=== PATIENT | female | born 1935 | race Caucasian/White ===

== ENCOUNTER 2016-02-25 11:56 | Emergency (ER) | payer MEDICARE ==
[~2016-02-25] VITALS: Ht 167.6 cm; Wt 77.0 kg
[~2016-02-25 11:56] MED LIST: ACLI1AER2 IN; ASPI81TA82 PO; ATOR10TA PO; CALC500T19 PO; CARV3.12 PO; CELE40TA PO; CO Q100C9 PO; DIGO0.25 PO; FURO40TA PO; GUAI600; IRON18TA2 PO; LEVA500T PO; LORA1TAB PO; LORTA5 PO; MAXAIR AUTOHALER NASAL; PACE200T4 PO; POTA10IN2 PO; PROT40TA PO; REST30CA PO; SENN8.6T80 PO; TRIA3AER; VITA400D PO; VITRTAB3 PO; [UNRECOGNIZED DRUG - CODE]
[2016-02-25 12:01] VITALS: BP 118/59; PULSE 72; RESP 20; O2SAT 81
[2016-02-25] MEDS ORDERED: ONDANSETRON HCL 4 MG/2 ML VIAL IV PUSH ONE (12:30)
[2016-02-25] MEDS ORDERED: MORPHINE SULFATE 4 MG/ML INJ IV PUSH ONE (12:30)
[2016-02-25] MEDS ORDERED: COQ1200C PO (12:53)
[2016-02-25] MEDS ORDERED: CITA40TA4 PO (12:53)
[2016-02-25] MEDS ORDERED: LORA1TAB12 PO (12:53)
[2016-02-25] MEDS ORDERED: POTA-163 PO (12:53)
[2016-02-25] MEDS ORDERED: COQ-100C2 (12:53)
[2016-02-25] MEDS ORDERED: DIGO0.12 PO (12:53)
[2016-02-25] MEDS ORDERED: FURO40TA PO (12:53)
[2016-02-25] MEDS ORDERED: ADVA250A INH (12:53)
[2016-02-25] MEDS ORDERED: TEMA30CA PO (12:53)
[2016-02-25] MEDS ORDERED: FERR325T PO (12:53)
[2016-02-25] MEDS ORDERED: CALC0.25 PO (12:53)
[2016-02-25] MEDS ORDERED: OMEP20TA PO (12:53)
[2016-02-25] MEDS ORDERED: AMIO200T PO (12:53)
[2016-02-25] MEDS ORDERED: ASPI1TAB69 PO (12:53)
[2016-02-25] MEDS ORDERED: ATOR10TA15 PO (12:53)
[2016-02-25] MEDS ORDERED: TRIA1SPR6 EACH NARE (12:53)
[2016-02-25] MEDS ORDERED: OXYGEN 2L (12:53)
[2016-02-25] MEDS ORDERED: CARV3.12 PO (12:53)
[2016-02-25 12:56] LABS: AUTOMATED NEUTROPHIL # 12.9 TH/MM3 (1.8-7.7); BASOPHIL % 0.3 % (0.0-2.0); EOSINOPHIL # 0.1 TH/MM3 (0-0.4); EOSINOPHIL % 0.9 % (0.0-4.0); HEMATOCRIT 38.9 % (35.0-46.0); HEMO FLAGS DIFF FINAL; LYMPH % 5.6 % (9.0-44.0); LYMPHOCYTE # 0.8 TH/MM3 (1.0-4.8); MEAN CELL VOLUME 86.4 FL (80.0-100.0); MEAN CORPUSCULAR HEMOGLOBIN 28.2 PG (27.0-34.0); MEAN CORPUSCULAR HGB CONC 32.6 % (32.0-36.0); MONO % 6.3 % (0.0-8.0); NEUT % 86.9 % (16.0-70.0); PLATELET COUNT 256 TH/MM3 (150-450); RED CELL DISTRIBUTION WIDTH 14.4 % (11.6-17.2); WHITE BLOOD COUNT 14.8 TH/MM3 (4.0-11.0)
--- NOTE | 2016-02-25 13:01 | RADRPT ---
EXAM DATE/TIME: 02/25/2016 12:38 [facility] COMPARISON: No previous studies available for comparison. INDICATIONS : Trauma; fall, facial laceration. RADIATION DOSE: 56.35 CTDIvol (mGy) MEDICAL HISTORY : Cardiovascular disease. Carcinoma, lung. SURGICAL HISTORY : None. ENCOUNTER: Initial ACUITY: 1 day PAIN SCALE: 5/10 LOCATION: cranial TECHNIQUE: Multiple contiguous axial images were obtained of the head. Using automated exposure control and adj ustment of the mA and/or kV according to patient size, radiation dose was kept as low as reasonably a chievable to obtain optimal diagnostic quality images. FINDINGS: CEREBRUM: The ventricles are normal for age. No evidence of midline shift, mass lesion, hemorrhage or acute in farction. No extra-axial fluid collections are seen. POSTERIOR FOSSA: The cerebellum and brainstem are intact. The 4th ventricle is midline. The cerebellopontine angle i s unremarkable. EXTRACRANIAL: The visualized portion of the orbits is intact. SKULL: The calvaria is intact. No evidence of skull fracture. Fluid is present in the left maxillary sinus . Facial bones are pending. CONCLUSION: Intracranial contents are unremarkable. Anuel Sanford MD FACR on February 25, 2016 at 12:59 Board Certified Radiologist. This report was verified electronically.
--- NOTE | 2016-02-25 13:05 | RADRPT ---
EXAM DATE/TIME: 02/25/2016 12:29 [facility] COMPARISON: CHEST SINGLE AP, March 22, 2014, 9:34. INDICATIONS : Left-sided chest pain post fall today. MEDICAL HISTORY : None. SURGICAL HISTORY : CABG. Pacemaker. Port placement. ENCOUNTER: Initial ACUITY: 1 day PAIN SCORE: 10/10 LOCATION: Left chest FINDINGS: Pacemaker is implanted on the right. Central venous catheter is entering from the left. Heart is en larged. Pulmonary vascularity is normal. There is no alveolar consolidation, pleural effusion or pn eumothorax. CONCLUSION: Negative for pneumothorax or displaced rib fracture. Anuel Sanford MD FACR on February 25, 2016 at 12:58 Board Certified Radiologist. This report was verified electronically.
--- NOTE | 2016-02-25 13:09 | RADRPT ---
EXAM DATE/TIME: 02/25/2016 12:39 [facility] COMPARISON: No previous studies available for comparison. INDICATIONS : Trauma; fall; laceration to orbit. RADIATION DOSE: 20.08 CTDIvol (mGy) MEDICAL HISTORY : Carcinoma, lung. SURGICAL HISTORY : None. ENCOUNTER: Initial ACUITY: 1 day PAIN SCALE: 5/10 LOCATION: Bilateral neck TECHNIQUE: Volumetric scanning of the cervical spine was performed. Multiplanar reconstructions i n the sagittal, coronal and oblique axial planes were performed. Using automated exposure control a nd adjustment of the mA and/or kV according to patient size, radiation dose was kept as low as reason ably achievable to obtain optimal diagnostic quality images. FINDINGS: C1 and C2 are intact. C2-C3: Mild uncinate ridging is present without significant spinal stenosis. Neural foramina are ad equate. C3-C4: Moderate uncinate ridging is present with bilateral neural foraminal encroachment. C4-C5: Moderate bilateral neural foraminal encroachment and uncinate ridging is present. C5-C6: Moderate right-sided spinal stenosis is evident with minimal bilateral neural foraminal encro achment. C6-C7: The bony spinal canal is normal in size. No evidence of disc bulge or herniation. The neura l foramina are bilaterally patent. C7-T1: The bony spinal canal is normal in size. No evidence of disc bulge or herniation. The neura l foramina are bilaterally patent. CONCLUSION: Degenerative changes as described above without fracture. Anuel Sanford MD FACR on February 25, 2016 at 13:00 Board Certified Radiologist. This report was verified electronically.
--- NOTE | 2016-02-25 13:10 | RADRPT ---
EXAM DATE/TIME: 02/25/2016 12:40 [facility] COMPARISON: No previous studies available for comparison. INDICATIONS : Trauma; fall, laceration to left orbit. RADIATION DOSE: 21.96 CTDIvol (mGy) MEDICAL HISTORY : Carcinoma, lung. SURGICAL HISTORY : None. ENCOUNTER: Initial ACUITY: 1 day PAIN SCORE: 5/10 LOCATION: Bilateral facial TECHNIQUE: Volumetric scanning of the facial bones was performed. Using automated exposure control and adjustme nt of the mA and/or kV according to patient size, radiation dose was kept as low as reasonably achiev able to obtain optimal diagnostic quality images. FINDINGS: There is a fracture of the left infraorbital rim with minimal entrapment. There is minimal nasal sep kwasi deviation, convex to the left. The left zygoma is intact. Mandible and maxilla are intact. CONCLUSION: Fracture of the infraorbital rim on the left with minimal entrapment. Anuel Sanford MD FACR on February 25, 2016 at 13:01 Board Certified Radiologist. This report was verified electronically.
[2016-02-25 13:20] LABS: BICARBONATE 31.5 MEQ/L (21.0-32.0); POTASSIUM 3.9 MEQ/L (3.5-5.1)
[2016-02-25] MEDS ORDERED: HYDR-3533 PO (14:03)
[2016-02-25] MEDS ORDERED: ZOFR4TAB3 SL (14:03)
--- NOTE | 2016-02-25 14:03 | PD ---
HPI Chief Complaint: Fall Time Seen by Provider: 12:12 Travel History International Travel<30 days: No Contact w/Intl Traveler<30days: No Traveled to known affect area: No History of Present Illness HPI This is a 81-year-old female who was climbing on a two-step ladder to try to fix her heater and changed the batteries in her thermostat when she fell and hit her face and her left side. She did not lose consciousness. She reports moderate severity rib pain on the left side, worse with deep breaths, improved with rest. She denies any other injuries. Her last tetanus shot was within 5 years. PFSH Past Medical History Cancer: Yes (LOWER LEFT LOBE) Cardiovascular Problems: Yes (CHF) Diabetes: No Endocrine: No Gastrointestinal Disorders: Yes Genitourinary: No Hepatitis: No Hiatal Hernia: No Immune Disorder: No Medical other: No Musculoskeletal: Yes (ARTHRITIS) Neurologic: No Psychiatric: Yes (DEPRESSION/ANXIETY) Reproductive: No Respiratory: Yes (COPD) Thyroid Disease: No Tetanus Vaccination: < 5 Years Past Surgical History Abdominal Surgery: Yes (HYSTERECTOMY, APPENDECTOMY,BLADDER REPAIR) AICD: No Cardiac Surgery: Yes (OPEN HEART) Ear Surgery: No Endocrine Surgery: No Eye Surgery: No Genitourinary Surgery: No Gynecologic Surgery: No Joint Replacement: Yes (BOTH KNEES) Neurologic Surgery: No Oral Surgery: Yes (TONSILECTOMY) Pacemaker: Yes Thoracic Surgery: No Other Surgery: Yes Social History Alcohol Use: No Tobacco Use: No Substance Use: No Allergies-Medications (Allergen,Severity, Reaction): Coded Allergies: Trazodone (Verified Allergy, Severe, Nausea/Vomiting, 02/25/16) Percocet (Unverified Allergy, Intermediate, VOMITING, 02/25/16) Uncoded Allergies: TRAZ (Allergy, Intermediate, VOMITING, 03/22/14) Reported Meds & Prescriptions Reported Meds & Active Scripts Active Reported [Oxygen 2L] Aspirin 81 Mg Tabdr 81 Mg PO DAILY Coq10 (Coenzyme Q10 (Ubidecarenone)) 200 Mg Cap 1 Cap PO DAILY Coq-10 (Coenzyme Q10 (Ubidecarenone)) 100 Mg Cap 200 Ferrous Sulfate 325 Mg Tab 325 Mg PO DAILY Nasacort Allergy 24Hr Nasal (Triamcinolone Nasal) 55 Mcg/Act Spr 2 [place] EACH NARE DAILY Potassium Chloride ER (Potassium Chloride) 20 Meq Tab 20 Meq PO TID Omeprazole 20 Mg Tab 20 Mg PO BID Digoxin 0.125 Mg Tab 0.125 Mg PO DAILY Carvedilol 3.125 Mg Tab 3.125 Mg PO BID Amiodarone (Amiodarone HCl) 200 Mg Tab 200 Mg PO DAILY Furosemide 40 Mg Tab 40 Mg PO DAILY Calcitriol 0.25 Mcg Cap 0.25 Mcg PO EVERY OTHER DAY Citalopram (Citalopram Hydrobromide) 40 Mg Tab 40 Mg PO DAILY Advair Diskus Inh (Fluticasone-Salmeterol Inh) 250-50 Mcg/Blist Aer 1 Puff INH BID Rinse mouth after use. Lorazepam 1 Mg Tab 1 Mg PO BID PRN Atorvastatin (Atorvastatin Calcium) 10 Mg Tab 10 Mg PO HS Temazepam 30 Mg Cap 30 Mg PO HS PRN Review of Systems Except as stated in HPI: all other systems reviewed are Neg Physical Exam Narrative GENERAL:Well appearing, no acute distress SKIN: 2 cm laceration immediately below the left eyebrow. HEAD: Atraumatic. Normocephalic. EYES: Pupils equal and round. No injection or drainage. Full extraocular movements, some pain with upward gaze on both eyes with some periorbital ecchymosis of the left eye ENT: Moist mucous membranes NECK: Trachea midline. CARDIOVASCULAR: Regular rate and rhythm. No murmur appreciated. RESPIRATORY: Clear to auscultation. Breath sounds equal bilaterally. Tender to palpation along the left rib cage GASTROINTESTINAL: Abdomen soft, non-tender, nondistended. MUSCULOSKELETAL: No obvious deformities. NEUROLOGICAL: Awake and alert. No obvious cranial nerve deficits. Moving all extremities. PSYCHIATRIC: Appropriate mood and affect; insight and judgment normal. Data Data Last Documented VS Vital Signs Date Time Temp Pulse Resp B/P Pulse Ox O2 Delivery O2 Flow Rate FiO2 02/25/16 12:01 72 20 118/[address] Brain W/O Iv Contrast(Rout) (02/25/16 ) Ct Cerv Spine W/O Contrast (02/25/16 ) Ct Facial Bones W/O Iv Cont (02/25/16 ) Complete Blood Count With Diff (02/25/16 12:17) Basic Metabolic Panel (Bmp) (02/25/16 12:17) ^ Insert Iv (02/25/16 12:17) Chest, Single Ap (02/25/16 ) Morphine Inj (Morphine Inj) (02/25/16 12:30) Ondansetron Inj (Zofran Inj) (02/25/16 12:30) Labs Laboratory Tests Test 02/25/16 12:20 White Blood Count 14.8 TH/MM3 Red Blood Count 4.50 MIL/MM3 Hemoglobin 12.7 GM/DL Hematocrit 38.9 % Mean Corpuscular Volume 86.4 FL Mean Corpuscular Hemoglobin 28.2 PG Mean Corpuscular Hemoglobin 32.6 % Concent Red Cell Distribution Width 14.4 % Platelet Count 256 TH/MM3 Mean Platelet Volume 8.6 FL Neutrophils (%) (Auto) 86.9 % Lymphocytes (%) (Auto) 5.6 % Monocytes (%) (Auto) 6.3 % Eosinophils (%) (Auto) 0.9 % Basophils (%) (Auto) 0.3 % Neutrophils # (Auto) 12.9 TH/MM3 Lymphocytes # (Auto) 0.8 TH/MM3 Monocytes # (Auto) 0.9 TH/MM3 Eosinophils # (Auto) 0.1 TH/MM3 Basophils # (Auto) 0.0 TH/MM3 CBC Comment DIFF FINAL Differential Comment Sodium Level 139 MEQ/L Potassium Level 3.9 MEQ/L Chloride Level 103 MEQ/L Carbon Dioxide Level 31.5 MEQ/L Anion Gap 5 MEQ/L Blood Urea Nitrogen 12 MG/DL Creatinine 1.14 MG/DL Estimat Glomerular Filtration 46 ML/MIN Rate Random Glucose 90 MG/DL Calcium Level 9.1 MG/DL [facility] Medical Decision Making Medical Screen Exam Complete: Yes Emergency Medical Condition: Yes Interpretation(s) Leukocytosis with left shift Creatinine is 1.14 Last [address] 02/25/16 0000 Signed Impressions: Service Date/Time: Thursday, February 25, 2016 12:38 - CONCLUSION: Intracranial contents are unremarkable. Anuel Sanford MD FACR CT: fracture of the infraorbital rim with minimal entrapment Differential Diagnosis Intracranial hemorrhage, cervical spine fracture, orbital floor fracture, extraocular muscle entrapment Narrative Course This is a 81-year-old female who presents to the emergency department with closed head injury following trying to battery in her. Patient sustained a laceration over the left eye. She is placed on a monitor and an IV was established. CT of the head is negative for intracranial hemorrhage but the face demonstrates an infraorbital fracture with some minimal entrapment. She has full extraocular movements with some pain with upward gaze. There is no facial surgeon on-call today. I discussed with the patient the possibilities of being transferred to [place] for urgent surgery versus following up in outpatient clinic. Given that she has full extraocular movement I suspect that she mainly has some entrapped fat and I think she is safe for local follow-up. She would much prefer to follow up with an outpatient facial surgeon. Her laceration was repaired with glue. I do suspect the patient has a rib fracture. She'll be discharged on pain medicine and if her pain worsens or she becomes short of breath I urged her to return to the emergency department. She does have someone who lives with her who will check on her and help care for her. Procedures Procedure Narrative laceration repair: 2 cm laceration of the left face below the eyebrow was cleansed with normal saline and repaired with dermabond and steristrips. Diagnosis Primary Impression: Orbital floor fracture Qualified Code: S02.32XA - Closed fracture of left orbital floor, initial encounter Additional Impression: Laceration of face Qualified Code: S01.81XA - Laceration of face, initial encounter Referrals: Randall Graves DDS Patient Instructions: General Instructions Additional Instructions: You have a wound that was repaired with glue The glue film will fall off in 5- 10 days. Exposure to water might make the glue fall off too soon. Call your doctor if the edges of the wound open or pull apart. Change the bandage daily until the glue film falls off. Keepo the wound dry. Do not apply any ointments or creams over the film. You do not need to clean the wound. If it gets wet gently blot it dry with a soft towel. Do not soak or scrub the wound. If the wound develops increasing redness, pain, green or yellow discharge, swelling, foul odor, red streaks, or if you develop a fever return to the emergency department. History develop severe shortness of breath, chest pain or difficulty breathing return to the emergency room. Med/Other Pt SpecificInfo: Prescription(s) given Scripts Ondansetron Odt (Zofran Odt)4 Mg Tab4 Mg SL Q6HR PRN (Nausea/Vomiting) #14 TAB Ref 0 Prov:Emeli Kim MD 02/25/16 Hydrocodone-Acetaminophen (Lortab)5-325 Mg Tab1-2 Tab PO Q6H PRN (PAIN) #14 TAB Ref 0 Prov:Emeli Kim MD 02/25/16 Disposition: 01 DISCHARGE HOME Condition: Stable Emeli Kim MD Feb 25, 2016 14:03
[2016-02-25] MEDS ORDERED: HYDROmorphone HCL PF 1 MG/ML VIAL IM ONE (14:15)
[2016-02-25 15:11] VITALS: BP 142/87
[2016-04-02] MEDS ORDERED: TRAM50TA PO (13:50)
== END 2016-02-25 15:23 | disposition home or self-care (01) ==
LOC: NEPE 11:56
DX: S01.112A Laceration without foreign body of left eyelid and periocular area, initial encounter (principal); S02.32XA Fracture of orbital floor, left side, initial encounter for closed fracture; R07.9 Chest pain, unspecified; I50.9 Heart failure, unspecified; W11.XXXA Fall on and from ladder, initial encounter; Y93.89 Activity, other specified; Y92.009 Unspecified place in unspecified non-institutional (private) residence as the place of occurrence of the external cause; Z95.0 Presence of cardiac pacemaker
CPT/HCPCS: 12011; 70450; 70486; 71010; 72125; 80048; 85025; 96372; 96374; 96375; 99284; J1170; J2270; J2405

== ENCOUNTER 2016-03-14 17:25 | Inpatient (IN) | payer MEDICARE ==
[~2016-03-14] VITALS: Ht 167.6 cm; Wt 85.3 kg
[~2016-03-14 17:25] MED LIST changes: -ACLI1AER2 IN; +ADVA250A INH; +AMIO200T PO; +ASPI1TAB69 PO; -ASPI81TA82 PO; -ATOR10TA PO; +ATOR10TA15 PO; +CALC0.25 PO; -CALC500T19 PO; -CELE40TA PO; +CITA40TA4 PO; -CO Q100C9 PO; +COQ-100C2; +COQ1200C PO; +DIGO0.12 PO; -DIGO0.25 PO; +FERR325T PO; -GUAI600; +HYDR-3533 PO; -IRON18TA2 PO; -LEVA500T PO; -LORA1TAB PO; +LORA1TAB12 PO; -LORTA5 PO; -MAXAIR AUTOHALER NASAL; +OMEP20TA PO; +OXYGEN 2L; -PACE200T4 PO; +POTA-163 PO; -POTA10IN2 PO; -PROT40TA PO; -REST30CA PO; -SENN8.6T80 PO; +TEMA30CA PO; +TRIA1SPR6 EACH NARE; -TRIA3AER; -VITA400D PO; -VITRTAB3 PO; +ZOFR4TAB3 SL; -[UNRECOGNIZED DRUG - CODE]
[2016-03-14 17:27] VITALS: BP 122/75; PULSE 60; RESP 14; TEMP 98.2; O2SAT 83
[2016-03-14] MEDS ORDERED: SODIUM CHLORIDE 0.9% FLUSH 5 ML FLUSH IVF PRN (18:15)
[2016-03-14 18:34] VITALS: O2SAT 98
[2016-03-14 18:39] LABS: BASOPHIL % 0.1 % (0.0-2.0); EOSINOPHIL # 0.1 TH/MM3 (0-0.4); EOSINOPHIL % 0.9 % (0.0-4.0); HEMATOCRIT 35.5 % (35.0-46.0); HEMO FLAGS DIFF FINAL; LYMPH % 6.8 % (9.0-44.0); LYMPHOCYTE # 0.9 TH/MM3 (1.0-4.8); MEAN CELL VOLUME 86.1 FL (80.0-100.0); MEAN CORPUSCULAR HEMOGLOBIN 27.4 PG (27.0-34.0); MEAN CORPUSCULAR HGB CONC 31.8 % (32.0-36.0); MONO % 7.2 % (0.0-8.0); PLATELET COUNT 304 TH/MM3 (150-450); RED BLOOD COUNT 4.12 MIL/MM3 (4.00-5.30); RED CELL DISTRIBUTION WIDTH 14.7 % (11.6-17.2); WHITE BLOOD COUNT 12.9 TH/MM3 (4.0-11.0)
--- NOTE | 2016-03-14 18:56 | RADRPT ---
EXAM DATE/TIME: 03/14/2016 18:16 [facility] COMPARISON: CHEST SINGLE AP, February 25, 2016, 12:29. INDICATIONS : Palpitations, Syncope. MEDICAL HISTORY : Hypertension. SURGICAL HISTORY : Pacemaker. CABG. ENCOUNTER: Initial ACUITY: 1 day PAIN SCORE: 0/10 LOCATION: chest FINDINGS: Pacemaker device is noted with control pack over the right chest. A left chest port is present. Linea r scarring or atelectasis is again noted in the mid lung zones bilaterally. There is no significant e ffusion. Heart size and mediastinal contours are grossly stable. CONCLUSION: Stable bilateral parenchymal lung scarring or atelectasis Win Chery MD on March 14, 2016 at 18:53 Board Certified Radiologist. This report was verified electronically.
[2016-03-14 19:00] LABS: ANION GAP 6 MEQ/L (5-15); BICARBONATE 30.7 MEQ/L (21.0-32.0); BLOOD UREA NITROGEN 18 MG/DL (7-18); CHLORIDE 101 MEQ/L (98-107); GLOMERULAR FILTRATION RATE 38 ML/MIN (>89); POTASSIUM 4.3 MEQ/L (3.5-5.1); SODIUM (NA) 138 MEQ/L (136-145)
--- NOTE | 2016-03-14 19:05 | PD ---
HPI . Syncope Chief Complaint: Fall Time Seen by Provider: 17:59 Travel History International Travel<30 days: No Contact w/Intl Traveler<30days: No Traveled to known affect area: No History of Present Illness HPI Patient presents complaining with several episodes of syncope since February 24. She states that she suffered a fall on February 24. Since then, she gets dizzy when she stands up. She reportedly had a syncopal episode today. She denies any injury today associated with her syncope. When she was here on the , she had suffered a mechanical fall with no associated loss of consciousness. She had an orbital floor fracture and some probable rib fractures. She reports no problems today with these injuries. She does admit to some chest pain and shortness of breath. She also has had some nausea and vomiting. PFSH Past Medical History Cancer: Yes (LOWER LEFT LOBE) Cardiovascular Problems: Yes Diabetes: Yes Endocrine: No Gastrointestinal Disorders: Yes Genitourinary: No Hepatitis: No Hiatal Hernia: No Immune Disorder: No Musculoskeletal: Yes (ARTHRITIS) Neurologic: No Psychiatric: Yes (DEPRESSION/ANXIETY) Reproductive: No Respiratory: Yes Thyroid Disease: No Tetanus Vaccination: < 5 Years Past Surgical History Abdominal Surgery: Yes (HYSTERECTOMY, APPENDECTOMY,BLADDER REPAIR) AICD: No Cardiac Surgery: Yes (OPEN HEART) Ear Surgery: No Endocrine Surgery: No Eye Surgery: No Genitourinary Surgery: No Gynecologic Surgery: No Joint Replacement: Yes (BOTH KNEES) Neurologic Surgery: No Oral Surgery: Yes (TONSILECTOMY) Pacemaker: Yes Thoracic Surgery: No Other Surgery: Yes Social History Alcohol Use: No Tobacco Use: No Substance Use: No Allergies-Medications (Allergen,Severity, Reaction): Coded Allergies: Trazodone (Verified Allergy, Severe, Nausea/Vomiting, 03/14/16) Percocet (Unverified Allergy, Intermediate, VOMITING, 03/14/16) Uncoded Allergies: TRAZ (Allergy, Intermediate, VOMITING, 03/22/14) Reported Meds & Prescriptions Reported Meds & Active Scripts Active Zofran Odt (Ondansetron Odt) 4 Mg Tab 4 Mg SL Q6HR PRN Lortab (Hydrocodone-Acetaminophen) 5-325 Mg Tab 1-2 Tab PO Q6H PRN Reported [Oxygen 2L] Aspirin 81 Mg Tabdr 81 Mg PO DAILY Coq10 (Coenzyme Q10 (Ubidecarenone)) 200 Mg Cap 1 Cap PO DAILY Coq-10 (Coenzyme Q10 (Ubidecarenone)) 100 Mg Cap 200 Ferrous Sulfate 325 Mg Tab 325 Mg PO DAILY Nasacort Allergy 24Hr Nasal (Triamcinolone Nasal) 55 Mcg/Act Spr 2 [place] EACH NARE DAILY Potassium Chloride ER (Potassium Chloride) 20 Meq Tab 20 Meq PO TID Omeprazole 20 Mg Tab 20 Mg PO BID Digoxin 0.125 Mg Tab 0.125 Mg PO DAILY Carvedilol 3.125 Mg Tab 3.125 Mg PO BID Amiodarone (Amiodarone HCl) 200 Mg Tab 200 Mg PO DAILY Furosemide 40 Mg Tab 40 Mg PO DAILY Calcitriol 0.25 Mcg Cap 0.25 Mcg PO EVERY OTHER DAY Citalopram (Citalopram Hydrobromide) 40 Mg Tab 40 Mg PO DAILY Advair Diskus Inh (Fluticasone-Salmeterol Inh) 250-50 Mcg/Blist Aer 1 Puff INH BID Rinse mouth after use. Lorazepam 1 Mg Tab 1 Mg PO BID PRN Atorvastatin (Atorvastatin Calcium) 10 Mg Tab 10 Mg PO HS Temazepam 30 Mg Cap 30 Mg PO HS PRN Review of Systems Except as stated in HPI: all other systems reviewed are Neg General / Constitutional: No: Fever, Chills Eyes: No: Diploplia, Blurred Vision HENT: Positive: Lightheadedness, No: Headaches Cardiovascular: Positive: Chest Pain or Discomfort Respiratory: Positive: Shortness of Breath Neurologic: Positive: Weakness, Dizziness Physical Exam Narrative GENERAL: This is a healthy-appearing elderly woman who does have some bruising her left cheek and her left shoulder. SKIN: Warm and dry. Bruising as noted above. HEAD: Atraumatic. Normocephalic. EYES: Pupils equal and round. Extraocular movements are intact. ENT: No nasal bleeding or discharge. Mucous membranes pink and moist. NECK: Trachea midline. Neck is supple. CARDIOVASCULAR: Regular rate and rhythm. Heart sounds were normal. RESPIRATORY: No accessory muscle use. Lungs are clear with full air movement throughout. GASTROINTESTINAL: Abdomen soft, non-tender, nondistended. MUSCULOSKELETAL: No obvious deformities. No edema. NEUROLOGICAL: Awake and alert. No obvious cranial nerve deficits. Motor grossly within normal limits. Normal speech. PSYCHIATRIC: Appropriate mood and affect; insight and judgment normal. Data Data Last Documented VS Vital Signs Date Time Temp Pulse Resp B/P Pulse Ox O2 Delivery O2 Flow Rate FiO2 03/14/16 19:35 61 18 135/64 92 Nasal Cannula 3 03/14/16 17:27 98.2 Orders Electrocardiogram (03/14/16 18:01) Basic Metabolic Panel (Bmp) (03/14/16 18:01) Complete Blood Count With Diff (03/14/16 18:01) Ckmb (Isoenzyme) Profile (03/14/16 18:01) Troponin I (03/14/16 18:01) Chest, Single Ap (03/14/16 18:01) Ecg Monitoring (03/14/16 18:01) Iv Access Insert/Monitor (03/14/16 18:01) Oximetry (03/14/16 18:01) Sodium Chloride 0.9% Flush (Ns Flush) (03/14/16 18:15) D-Dimer (03/14/16 19:06) Ct Brain W/O Iv Contrast(Rout) (03/14/16 19:06) Ct Pulmonary Angiogram (03/14/16 19:55) Labs Laboratory Tests Test 03/14/16 03/14/16 18:30 19:07 White Blood Count 12.9 TH/MM3 Red Blood Count 4.12 MIL/MM3 Hemoglobin 11.3 GM/DL Hematocrit 35.5 % Mean Corpuscular Volume 86.1 FL Mean Corpuscular Hemoglobin 27.4 PG Mean Corpuscular Hemoglobin 31.8 % Concent Red Cell Distribution Width 14.7 % Platelet Count 304 TH/MM3 Mean Platelet Volume 7.8 FL Neutrophils (%) (Auto) 85.0 % Lymphocytes (%) (Auto) 6.8 % Monocytes (%) (Auto) 7.2 % Eosinophils (%) (Auto) 0.9 % Basophils (%) (Auto) 0.1 % Neutrophils # (Auto) 11.0 TH/MM3 Lymphocytes # (Auto) 0.9 TH/MM3 Monocytes # (Auto) 0.9 TH/MM3 Eosinophils # (Auto) 0.1 TH/MM3 Basophils # (Auto) 0.0 TH/MM3 CBC Comment DIFF FINAL Differential Comment Sodium Level 138 MEQ/L Potassium Level 4.3 MEQ/L Chloride Level 101 MEQ/L Carbon Dioxide Level 30.7 MEQ/L Anion Gap 6 MEQ/L Blood Urea Nitrogen 18 MG/DL Creatinine 1.34 MG/DL Estimat Glomerular Filtration 38 ML/MIN Rate Random Glucose 105 MG/DL Calcium Level 8.0 MG/DL Total Creatine Kinase 53 U/L Troponin I LESS THAN 0.02 NG/ML D-Dimer Quantitative (PE/DVT) 3.76 MG/L FEU [facility] Medical Decision Making Medical Screen Exam Complete: Yes Emergency Medical Condition: Yes Interpretation(s) Paced rhythm. No old EKGs here for comparison. Differential Diagnosis My differential diagnosis of syncope includes but is not limited to cardiac arrhythmia, hypovolemia, anemia, neurological catastrophe, vasovagal response Narrative Course Patient presents for evaluation of syncope. CBC has a white count of 12.9. H&H is 11.3 and 35.5. D-dimer is elevated at 3.76. A CT for PE has subsequently been ordered. Electrolytes are normal. GFR is 38. Cardiac enzymes are negative. Head CT is negative for acute change. Her CT for PE has not been done yet. I have checked her out to Dr. Moe pending the CT for PE. Critical Care Narrative Aggregate critical care time was [-] minutes. Time to perform other separately billable procedures was not included in the critical care time. My time did not include minutes spent treating any other patients simultaneously or on activities that did not directly contribute to the patient's treatment. The services I provided to this patient were to treat and/or prevent clinically significant deterioration that could result in: Cardiac dysrhythmia, cardiovascular collapse, PE with respiratory arrest I provided critical care services requiring my management, as noted below: Chart data review, documentation time, medication orders and management, vital sign assessments/reviewing monitor data, ordering and reviewing lab tests, ordering and interpreting/reviewing x-rays and diagnostic studies, care of the patient and discussion of the patient with the admitting physicians. Diagnosis Primary Impression: Syncope Qualified Code: R55 - Syncope, unspecified syncope type Additional Impression: Elevated d-dimer Condition: Stable Manju Huitron MD Mar 14, 2016 19:05
[2016-03-14 19:18] LABS: CREATINE KINASE 53 U/L (26-192)
[2016-03-14 19:35] VITALS: BP 135/64; PULSE 61; RESP 18; O2SAT 92
--- NOTE | 2016-03-14 20:44 | RADRPT ---
EXAM DATE/TIME: 03/14/2016 19:24 [facility] COMPARISON: CT BRAIN W/O CONTRAST, February 25, 2016, 12:38. INDICATIONS : Dizziness and syncope. RADIATION DOSE: 41.33 CTDIvol (mGy) MEDICAL HISTORY : Cardiovascular disease. Diabetes mellitus type 2. Carcinoma, lung. SURGICAL HISTORY : Pacemaker. Tonsillectomy. ENCOUNTER: Initial ACUITY: 1 day PAIN SCALE: 3/10 LOCATION: cranial TECHNIQUE: Multiple contiguous axial images were obtained of the head. Using automated exposure control and adj ustment of the mA and/or kV according to patient size, radiation dose was kept as low as reasonably a chievable to obtain optimal diagnostic quality images. FINDINGS: The ventricles are symmetric and normal. No abnormal extra axial fluid collections are identified. Th ere is no evidence of intracranial hemorrhage or mass. Nothing to suggest acute infarction. There is minimal sinus disease present in left posterior ethmoids. Extracranial structures are otherwise intac t and unremarkable. CONCLUSION: No acute findings Win Chery MD on March 14, 2016 at 20:40 Board Certified Radiologist. This report was verified electronically.
[2016-03-14] MEDS ORDERED: IODIXANOL 320 MG/ML 10 ML VIAL (for Rad CT) IV ONE (21:58)
--- NOTE | 2016-03-14 22:09 | RADRPT ---
EXAM DATE/TIME: 03/14/2016 21:34 [facility] COMPARISON: CHEST SINGLE AP, March 14, 2016, 18:16. INDICATIONS : Short of breath. IV CONTRAST: 49 cc Visipaque (iodixanol) IV RADIATION DOSE: 23.15 CTDIvol (mGy) MEDICAL HISTORY : Carcinoma, lung. diabetes, arthritis SURGICAL HISTORY : Hysterectomy. Appendectomy.CABGbladder repair. ENCOUNTER: Initial ACUITY: 1 day PAIN SCALE: 0/10 LOCATION: chest TECHNIQUE: Volumetric scanning of the chest was performed using a pulmonary embolism protocol MIP images were re constructed. Using automated exposure control and adjustment of the mA and/or kV according to patien t size, radiation dose was kept as low as reasonably achievable to obtain optimal diagnostic quality images. FINDINGS: PULMONARY ARTERIES: No filling defects are seen in the pulmonary arteries through the segmental level. LUNGS: There are areas of atelectasis or infiltrate in the right midlung and in the left perihilar region an d posteromedial left base as well as the lateral left midlung. PLEURAE: There is no pleural thickening or pleural effusion. MEDIASTINUM: There is good visualization of the great vessels of the middle mediastinum. No evidence of mediastin al or hilar adenopathy/mass. MUSCULOSKELETAL: Within normal limits for patient age. MISCELLANEOUS: The visualized upper abdominal organs demonstrate no acute abnormality. CONCLUSION: No evidence of pulmonary embolism Win Chery MD on March 14, 2016 at 22:02 Board Certified Radiologist. This report was verified electronically.
--- NOTE | 2016-03-14 23:29 | PD ---
Data Data Last Documented VS Vital Signs Date Time Temp Pulse Resp B/P Pulse Ox O2 Delivery O2 Flow Rate FiO2 03/14/16 19:35 61 18 135/64 92 Nasal Cannula 3 03/14/16 17:27 98.2 Orders Electrocardiogram (03/14/16 18:01) Basic Metabolic Panel (Bmp) (03/14/16 18:01) Complete Blood Count With Diff (03/14/16 18:01) Ckmb (Isoenzyme) Profile (03/14/16 18:01) Troponin I (03/14/16 18:01) Chest, Single Ap (03/14/16 18:01) Ecg Monitoring (03/14/16 18:01) Iv Access Insert/Monitor (03/14/16 18:01) Oximetry (03/14/16 18:01) Sodium Chloride 0.9% Flush (Ns Flush) (03/14/16 18:15) D-Dimer (03/14/16 19:06) Ct Brain W/O Iv Contrast(Rout) (03/14/16 19:06) Ct Pulmonary Angiogram (03/14/16 19:55) Iodixanol 320 Inj (Rad Ct) (Visipaque 32 (03/14/16 21:58) Vital Signs (Adult) Q4H (03/14/16 23:25) Neuro Checks Q4H (03/14/16 23:25) Activity Bed Rest With Brp (03/14/16 23:25) Diet Heart Healthy (03/15/16 Breakfast) Sodium Chlor 0.9% 1000 Ml Inj (Ns 1000 M (03/14/16 23:25) Sodium Chloride 0.9% Flush (Ns Flush) (03/14/16 23:30) Sodium Chloride 0.9% Flush (Ns Flush) (03/15/16 09:00) Acetaminophen (Tylenol) (03/14/16 23:30) Ondansetron Inj (Zofran Inj) (03/14/16 23:30) Basic Metabolic Panel (Bmp) (03/15/16 06:00) Complete Blood Count With Diff (03/15/16 06:00) Creatine Kinase (Cpk) (03/15/16 00:00) Creatine Kinase (Cpk) (03/15/16 06:00) Troponin I (03/15/16 00:00) Troponin I (03/15/16 06:00) Electrocardiogram (03/15/16 00:00) Electrocardiogram (03/15/16 06:00) Scd Bilateral/Knee High TRACI.BID (03/14/16 23:25) Naloxone Inj (Narcan Inj) (03/14/16 23:30) Echo 2d Comp W/Dopp(Routine) (03/14/16 ) Us Carotid Arteries Comp Bilat (03/14/16 ) Labs Laboratory Tests Test 03/14/16 03/14/16 18:30 19:07 White Blood Count 12.9 TH/MM3 Red Blood Count 4.12 MIL/MM3 Hemoglobin 11.3 GM/DL Hematocrit 35.5 % Mean Corpuscular Volume 86.1 FL Mean Corpuscular Hemoglobin 27.4 PG Mean Corpuscular Hemoglobin 31.8 % Concent Red Cell Distribution Width 14.7 % Platelet Count 304 TH/MM3 Mean Platelet Volume 7.8 FL Neutrophils (%) (Auto) 85.0 % Lymphocytes (%) (Auto) 6.8 % Monocytes (%) (Auto) 7.2 % Eosinophils (%) (Auto) 0.9 % Basophils (%) (Auto) 0.1 % Neutrophils # (Auto) 11.0 TH/MM3 Lymphocytes # (Auto) 0.9 TH/MM3 Monocytes # (Auto) 0.9 TH/MM3 Eosinophils # (Auto) 0.1 TH/MM3 Basophils # (Auto) 0.0 TH/MM3 CBC Comment DIFF FINAL Differential Comment Sodium Level 138 MEQ/L Potassium Level 4.3 MEQ/L Chloride Level 101 MEQ/L Carbon Dioxide Level 30.7 MEQ/L Anion Gap 6 MEQ/L Blood Urea Nitrogen 18 MG/DL Creatinine 1.34 MG/DL Estimat Glomerular Filtration 38 ML/MIN Rate Random Glucose 105 MG/DL Calcium Level 8.0 MG/DL Total Creatine Kinase 53 U/L Troponin I LESS THAN 0.02 NG/ML D-Dimer Quantitative (PE/DVT) 3.76 MG/L FEU MDM Supervised Visit with NADJA: No Narrative Course Assumed care patient with Dr. lara. While patient with multiple episodes of syncope a syncope including some lightheadedness dizziness with exertion. Initial workup appears unremarkable. CT pulmonary angiogram was pending and is negative. Recommend admission for further evaluation. Diagnosis Primary Impression: Syncope Qualified Code: R55 - Syncope, unspecified syncope type Additional Impression: Elevated d-dimer Condition: Stable Anatoly Moe MD Mar 14, 2016 23:29
[2016-03-14] MEDS ORDERED: ACETAMINOPHEN 325 MG TAB PO PRN (23:30)
[2016-03-14] MEDS ORDERED: NALOXONE HCL 0.4 MG/ML AMP IV PRN (23:30)
[2016-03-14] MEDS ORDERED: SODIUM CHLORIDE 0.9% FLUSH 5 ML FLUSH FLUSH PRN (23:30)
[2016-03-15] VITALS (8 sets, daily range): BP systolic 91–125; BP diastolic 50–60; PULSE 60–63; RESP 15–19; TEMP 96.2–98.1; O2SAT 91–98
[2016-03-15] MEDS: SODIUM CHLOR 0.9% 1000 ML INJ 1,000 ML IV SCH ×3 (00:05→22:59)
[2016-03-15] MEDS ORDERED: LEVA500T PO (00:23)
[2016-03-15] MEDS ORDERED: TEMAZEPAM 15 MG CAP PO ONE (01:15)
[2016-03-15 04:13] LABS: AUTOMATED NEUTROPHIL # 8.8 TH/MM3 (1.8-7.7); BASOPHIL % 0.4 % (0.0-2.0); EOSINOPHIL # 0.2 TH/MM3 (0-0.4); EOSINOPHIL % 1.3 % (0.0-4.0); HEMO FLAGS DIFF FINAL; LYMPH % 11.7 % (9.0-44.0); LYMPHOCYTE # 1.3 TH/MM3 (1.0-4.8); MEAN CELL VOLUME 84.4 FL (80.0-100.0); MEAN CORPUSCULAR HEMOGLOBIN 27.7 PG (27.0-34.0); MEAN CORPUSCULAR HGB CONC 32.8 % (32.0-36.0); MONO % 10.5 % (0.0-8.0); NEUT % 76.1 % (16.0-70.0); PLATELET COUNT 265 TH/MM3 (150-450); RED BLOOD COUNT 3.79 MIL/MM3 (4.00-5.30); RED CELL DISTRIBUTION WIDTH 14.6 % (11.6-17.2); WHITE BLOOD COUNT 11.5 TH/MM3 (4.0-11.0)
[2016-03-15 04:26] LABS: BICARBONATE 32.9 MEQ/L (21.0-32.0); POTASSIUM 3.9 MEQ/L (3.5-5.1)
[2016-03-15] MEDS ORDERED: MIRA33504 PO (07:11)
[2016-03-15] MEDS: SODIUM CHLORIDE 0.9% FLUSH 5 ML FLUSH FLUSH SCH ×2 (09:00→22:58)
[2016-03-15] MEDS ORDERED: NON-FORMULARY DRUG (Coenzyme Q10 (Ubidecarenone) (Coq10) 1 CAP) PO SCH (09:00)
[2016-03-15] MEDS ORDERED: LORazepam 1 MG TAB PO PRN (10:00)
[2016-03-15] MEDS: CARVEDILOL 3.125 MG TAB PO SCH ×2 (10:00→22:57)
--- NOTE | 2016-03-15 10:00 | RADRPT ---
EXAM DATE/TIME: 03/15/2016 08:55 [facility] COMPARISON: CT BRAIN W/O CONTRAST, March 14, 2016, 19:24. INDICATIONS : Syncope. MEDICAL HISTORY : Myocardial infarction. Carcinoma, lung. Chemotherapy. SURGICAL HISTORY : CABG. Hysterectomy. Tonsillectomy. Bladder repair. Appendectomy. Cholecystectomy. Back surgery. ENCOUNTER: Initial ACUITY: 1 day PAIN SCORE: 8/10 LOCATION: Bilateral neck PEAK SYSTOLIC VELOCITIES (cm/sec): ICA/CCA RATIO: Right: 1.5 Left: 1.6 ICA: Right: 160 Left: 147 CCA: Right: 104 Left: 90 ECA: Right: 255 Left: 72 VERTEBRAL: Right: 63 antegrade Left: 54 antegrade Elevated flow velocities and ICA/CCA ratios have been found to correlate with increased degrees of vessel stenosis, calculated as percentage of diameter relative to a normal segment of distal ICA/CCA FINDINGS: Bilateral vertebrals antegrade flow. Bilateral carotids reveal soft and calcific plaquing at the ball s exclusive of extension into the region to the initial segment of the internal and external carotid arteries. This is non-stenotic. CONCLUSION: Atherosclerotic soft and calcific plaque in bilateral carotids. No evidence of anatomic or physiologi c stenosis. Khanh Duong MD on March 15, 2016 at 9:56 Board Certified Radiologist. This report was verified electronically.
--- NOTE | 2016-03-15 10:05 | MH ---
cc: ROMEL HAMPTON MD DATE OF ADMISSION: 03/14/2016 DATE OF 1935 CHIEF COMPLAINT Syncopal episode with probable loss of consciousness. HISTORY OF PRESENT ILLNESS This is a pleasant 81 year-old female who looks to be her stated age. She has been in her usual state of health until yesterday. She states that she got up to go to the kitchen to get some lemon water and when she got into the kitchen, she had a dizzy sensation. She sat down briefly to try to see if this dizzy sensation would pass and she fell to the floor and had a syncopal episode. She is not sure how long she was out, but she was able to call for her friend who lives with her. The friend did tell the ER staff that she did hear her hit the floor. The patient awoke on her own. Her other symptoms noted have been some nausea, vomiting, decreased appetite, but denies any cough. No headache. No acute chest pain or shortness of breath at this incident. According to the record and patient, she fell on February 24 while stepping on the first step of a two step step-ladder. She was treated for an orbital fracture and possibly some mild rib fractures versus musculoskeletal injury during this time. She was given pain medicine when she went home from this visit. She states that since this visit, that is when she has noticed her nausea and vomiting, decreased appetite, and was concerned that maybe some of her medicines were making her sick. She is still very sore in her chest and ribs on the left side to tactile stimulation. She also notes some urinary stream flow issues. She states that since this fall, she has been dribbling or having a very low stream. The patient has not voided since about 4 o'clock yesterday afternoon when coming to the emergency room. The patient does have a PCP at the [facility] in [place], Dr. Abdirahman House. She also has a rabble furnace tender, Dr. Krish Leong close to [facility]. He works out of the [facility], telephone number to this clinic is . The patient does have a significant history of cardiac disease. She also states that she thinks she had an echo and a stress test back during the summer of 2014. The patient also complains of constipation with no bowel movement for the past four days. This has also been an issue for the past couple of weeks since taking her p.o. pain management. She has had some night sweats and some diaphoresis a couple of times over the past few weeks. PAST MEDICAL HISTORY includes: 1. 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 2. Cardiovascular disease 3. Diabetes mellitus 4. GERD 5. Some urinary retention 6. Stream issues for the past two weeks 7. Constipation for the past four days 8. History of arthritis. 9. Anxiety depression 10. Fair historian 11. Respiratory issues. PAST SURGICAL HISTORY 1. Appendectomy 2. Bladder repair 3. Hysterectomy 4. CABG in 2009, she thinks. 5. Joint replacement in both knees 6. Tonsillectomy 7. Pacemaker times four insertion, the first pacemaker was in 1985, second 1995, third was 2005, fourth she thinks was 2010. ALLERGIES PERCOCET, TRAZODONE. MEDICATIONS REPORTED 1. Aspirin 81 daily 2. Co-enzyme Q10 200 mg p.o. daily 3. Ferrous sulfate 325 p.o. daily 4. Nasacort Allergy nasal spray 5. Potassium 20 mg p.o. three times a day 6. Omeprazole 20 mg p.o. twice a day 7. She has been taking Hydrocodone 5/3.25 one to two q6h as needed for pain. This is the past two weeks. 8. Zofran 4 mg sublingual q6h as needed 9. Digoxin 0.125 mg p.o. daily 10. Coreg 3.125 p.o. twice a day 11. Amiodarone 2 mg p.o. daily 12. Lasix 40 mg daily 13. Calcium 0.25 mcg every other day 14. Citalopram 40 mg daily 15. Advair puffs 16. Lorazepam 1 mg twice a day as needed 17. Atorvastatin 10 mg p.o. at h.s. 18. Temazepam 30 mg h.s. as needed SOCIAL HISTORY The patient is here for the winter. Lives with a female friend. After this season, she goes back to [place]. Denies any alcohol, tobacco or illicit drug use. FAMILY HISTORY Hypertension REVIEW OF SYSTEMS A 12-point review was done, all other systems were reviewed. She is positive for chest pain, musculoskeletal discomfort, shortness of breath, positive for weakness, dizziness. Positive for nausea, some vomiting. Positive for urinary retention, constipation. Her urine stream is slow and low. All other systems were reviewed and negative. PHYSICAL EXAM VITAL SIGNS: Initial temperature is not registered. Pulse is 61, respiratory rate is 18, was initially around 24 yesterday evening at 1800, how 18. Blood pressure high for yesterday evening was 135/64, low and current 111/56, O2 sat 95 two liters O2 nasal cannula. GENERAL: This is a well-nourished white elderly female who looks to be her stated age. She is a fair historian, but sometimes is pleasantly confused about some of her history. She is resting in the bed. No one else is in the room. SKIN: Pale, but warm and dry. She does have some slight bruising noted at her right periorbital area status post her fall. She also has a small bruise on the right lower leg, a healing bruise on the left shoulder. No bruising noted on her chest. HEAD, EYES, EARS, NOSE, AND THROAT: Normocephalic. PERRLA at 3, mild minimal periorbital edema on that left eye which was status post her fall in February. No nasal discharge. Mucous membranes are pink and moist. Trachea is midline. NECK: Supple. CARDIOVASCULAR: S1 and S2, distant heart rate. No murmurs, rubs or gallops appreciated. She has no pedal edema. Pulses are intact. RESPIRATORY: Lungs are essentially clear anteriorly and posteriorly. She has equal sounds. GASTROINTESTINAL: Abdomen is flat, soft, nontender and nondistended. Active bowel sounds in all four quadrants. MUSCULOSKELETAL: She moves all extremities with purpose. She has equal hand icu nurse. No cyanosis or clubbing. NEUROLOGIC: She is alert, awake, and oriented times three and some of situation. Speech is clear and normal. PSYCHIATRIC: Appropriate mood and affect. Her judgment is normal. DIAGNOSTIC DATA White count is 11.5, RBC 3.79, hemoglobin 10.5, hematocrit 32, platelet count 265. Her neutrophil count, although is 76.1, monocyte auto is 10.5. D-dimer 3.76. Chemistry, sodium 140, potassium 3.9, chloride 102, carbon dioxide 32.9, amnion gap is 5, BUN 14, creatinine 1.09, GFR 48, random glucose is 79, calcium 7.8. Troponin times three is less than 0.02. IMAGING STUDIES Show a chest x-ray which shows stable bilateral lung scarring or atelectasis. CT of the head, no acute findings. CT angiography, no evidence of pulmonary embolism. ASSESSMENT AND PLAN 1. Syncopal episode with loss of consciousness. 2. Elevated D-dimer 3. Acute kidney injury/possible dehydration 4. Urinary retention 5. Constipation 6. Diabetes mellitus type 2 7. GERD 8. History of left and right lower lobe cancer. 9. Cardiovascular disease 10. Anxiety/depression Our plan is to admit for observation. The patient will need further work up, possibly more x-rays or diagnostic tests for her elevated D-dimer. We need to monitor her on Telemetry. Monitor for any dysrhythmias. Reconcile her medications. Ultrasound of the carotid. Orthostatic blood pressures, neuro checks q4. Activity will be bedrest with bedside commode with assistance only. Hearth healthy diet ADA. We will monitor her lab work and any abnormality will be treated. SCD's, gentle hydration with IV fluids. We will monitor lab work in the morning which will include a CBC and a BMP. I have obtained PCP and cardiology back in [place]. We are attempting to get those old records to have a background assessment. Since the patient has had urinary retention and no voiding since 4:00 p.m. we placed a Rueda catheter in her and note her output. Pain management for the musculoskeletal soreness in her left chest and ribs. Since she has been constipated for four days, we are going to give her a Dulcolax suppository and restart her MiraLax. This has all been explained to the patient. This has also been discussed with the nurse, discussed with Dr. Hampton. The patient was seen on his behalf. The patient is full code, full aggressive care. We will follow. Dictated by DELORES Gilliland MD LAYLA Rhodes/ELODIA /8:40 AM /10:17 AM PT is seen & Examined d/w PT in detail d/w Claudia d/w RN see Orders Dr narayanan will f/u Romel Hampton MD Mar 15, 2016 10:19 MTDD
[2016-03-15] MEDS: AMIODARONE 200 MG TAB PO SCH (10:08)
[2016-03-15] MEDS: CITALOPRAM HYDROBROMIDE 40 MG TAB PO SCH (10:08)
[2016-03-15] MEDS: DIGOXIN 0.125 MG TAB PO SCH (10:08)
[2016-03-15] MEDS: PANTOPRAZOLE SOD 20 MG DELAYED RELEASE TAB PO SCH ×2 (10:09→22:56)
[2016-03-15] MEDS: FERROUS SULFATE 325 MG (65 MG ELEMENTAL IRON) TAB PO SCH (10:09)
[2016-03-15] MEDS: ASPIRIN EC 81 MG TABEC PO SCH (10:09)
[2016-03-15] MEDS: ACETAMINOPHEN/HYDROcodone 325 MG/5 MG TAB PO PRN ×2 (10:10→22:57)
--- NOTE | 2016-03-15 10:19 | HHI.PR ---
Objective Objective Results - Vital Signs Date Time Temp Pulse Resp B/P Pulse Ox O2 Delivery O2 Flow Rate FiO2 03/15/16 10:04 60 18 91/50 95 Nasal Cannula 2 03/15/16 07:12 60 18 111/56 95 Nasal Cannula 2 03/15/16 05:14 60 15 104/51 95 Nasal Cannula 3 03/15/16 00:26 60 17 125/60 96 Nasal Cannula 3 03/14/16 19:35 61 18 135/64 92 Nasal Cannula 3 03/14/16 18:34 98 Room Air 03/14/16 17:57 24 95 Nasal Cannula 3 03/14/16 17:27 98.2 60 14 122/75 83 Room Air Result Diagram: 03/15/16 0346 03/15/16 0346 Other Results Laboratory Tests Test 03/14/16 03/14/16 03/15/16 03/15/16 18:30 19:07 00:58 03:46 White Blood Count 12.9 11.5 Red Blood Count 4.12 3.79 Hemoglobin 11.3 10.5 Hematocrit 35.5 32.0 Mean Corpuscular Volume 86.1 84.4 Mean Corpuscular Hemoglobin 27.4 27.7 Mean Corpuscular Hemoglobin 31.8 32.8 Concent Red Cell Distribution Width 14.7 14.6 Platelet Count 304 265 Mean Platelet Volume 7.8 8.3 Neutrophils (%) (Auto) 85.0 76.1 Lymphocytes (%) (Auto) 6.8 11.7 Monocytes (%) (Auto) 7.2 10.5 Eosinophils (%) (Auto) 0.9 1.3 Basophils (%) (Auto) 0.1 0.4 Neutrophils # (Auto) 11.0 8.8 Lymphocytes # (Auto) 0.9 1.3 Monocytes # (Auto) 0.9 1.2 Eosinophils # (Auto) 0.1 0.2 Basophils # (Auto) 0.0 0.0 CBC Comment DIFF FINAL DIFF FINAL Differential Comment Sodium Level 138 140 Potassium Level 4.3 3.9 Chloride Level 101 102 Carbon Dioxide Level 30.7 32.9 Anion Gap 6 5 Blood Urea Nitrogen 18 14 Creatinine 1.34 1.09 Estimat Glomerular Filtration 38 48 Rate Random Glucose 105 79 Calcium Level 8.0 7.8 Total Creatine Kinase 53 37 37 Troponin I LESS THAN 0.02 0.02 0.02 D-Dimer Quantitative (PE/DVT) 3.76 Physical Exam Physical Exam PT is seen & Examined d/w PT in detail d/w Claudia pearl/w RN see Orders Dr lady vaz f/u Abbie Hampton MD Mar 15, 2016 10:19
[2016-03-15] MEDS: BUDESONIDE-FORMOTEROL 160/4.5 MCG INHALER INH SCH ×2 (11:00→22:54)
[2016-03-15] MEDS ORDERED: TRIAMCINOLONE ACETONIDE 55 MCG/ACT NASAL SPRAY 16.5 GM BTL NASAL SCH (12:00)
--- NOTE | 2016-03-15 16:14 | EC ---
Study Study Date:03/15/2016 STUDY CONCLUSIONS SUMMARY - Left ventricle: The cavity size was normal. Wall thickness was normal. Systolic function was at the lower limits of normal. The estimated ejection fraction was 50%. Wall motion was normal; there were no regional wall motion abnormalities. - Mitral valve: Mild regurgitation. - Right ventricle: The cavity size was dilated. Wall thickness was normal. - Tricuspid valve: Mild regurgitation. - Pulmonic valve: Mild regurgitation. - Pulmonary arteries: Systolic pressure was moderately to severely increased. PA peak pressure: 67mm Hg (S). If LV function is below 40, please consider prescribing an ACEI or ARB or document rationale for non-use. PROCEDURE DATA STUDY STATUS: Elective. Procedure: Transthoracic echocardiography. Image quality was good. Scanning was performed from the parasternal, apical, and subcostal acoustic windows. Study completion: The patient tolerated the procedure well. Transthoracic echocardiography. M-mode, complete 2D, complete spectral Doppler, and color Doppler. Height: Height: 66in. Weight: Weight: 158.7lb. Body mass index: BMI: 25.7kg/m^2. Body surface area: BSA: 1.81m^2. Patient status: Inpatient. CARDIAC ANATOMY LEFT VENTRICLE: The cavity size was normal. Wall thickness was normal. Systolic function was at the lower limits of normal. The estimated ejection fraction was 50%. Wall motion was normal; there were no regional wall motion abnormalities. AORTIC VALVE: Trileaflet; normal thickness leaflets. Doppler: Transvalvular velocity was within the normal range. There was no stenosis. No regurgitation. Valve area: 2cm^2(VTI). Indexed valve area: 1.1cm^2/m^2 (VTI). Valve area: 2.1cm^2 (Vmax). Indexed valve area: 1.16cm^2/m^2 (Vmax). Mean gradient: 3mm Hg (S). AORTA: Aortic root: The aortic root was normal in size. MITRAL VALVE: Structurally normal valve. Doppler: Transvalvular velocity was within the normal range. There was no evidence for stenosis. Mild regurgitation. Peak gradient: 3mm Hg (D). LEFT ATRIUM: The atrium was normal in size. RIGHT VENTRICLE: The cavity size was dilated. Wall thickness was normal. PULMONIC VALVE: Doppler: Transvalvular velocity was within the normal range. There was no evidence for stenosis. Mild regurgitation. TRICUSPID VALVE: Structurally normal valve. Doppler: Transvalvular velocity was within the normal range. Mild regurgitation. PULMONARY ARTERY: The main pulmonary artery was normal-sized. Systolic pressure was moderately to severely increased. RIGHT ATRIUM: The atrium was normal in size. PERICARDIUM: There was no pericardial effusion. SYSTEMIC VEINS: Inferior vena cava: The vessel was normal in size. Patient weight: 158.7lb _Ejection fraction:_ 65-75% _Fractional shortening:_ 32% up to 5Kg 5-11.5Kg 11.6-22.9Kg 23-45Kg 45-57Kg Aortic Root 7-13 <17 13-22 17-27 17-27 LA diam 6-13 <23 24-38 33-47 37-40 RVID 10-17 7-15 7-15 7-18 8-17 LVIDd 12-22 <32 24-38 33-47 37-40 LVPW 2-4 3-6 5-7 6-8 7-8 IVS 2-4 3-6 5-7 6-8 7-8 BASIC MEASUREMENTS ADULT NORMAL Left ventricle LV internal dimension, ED, chordal 45.6 mm 43-52 level, PLAX LV internal dimension, ES, chordal 36.6 mm 23-38 level, PLAX Fractional shortening, chordal level, *20 % >29 PLAX LV posterior wall thickness, ED 10.4 mm IVS/LVPW ratio, ED 0.99 <1.3 Ventricular septum Septal thickness, ED 10.3 mm Aortic valve Leaflet separation 21 mm 15-26 Aorta Root diameter, ED 28 mm Left atrium Anterior-posterior dimension 29 mm Anterior-posterior dimension index 1.6 cm/m^2 <2.2 BASIC MEASUREMENTS ADULT NORMAL Aortic valve Leaflet separation 21 mm 15-26 DOPPLER MEASUREMENTS ADULT NORMAL Main pulmonary artery Pressure, S *67 mm Hg =30 Pressure, ED 14 mm Hg Aortic valve Peak velocity, S 128 cm/s Mean velocity, S 77.1 cm/s VTI, S 20.6 cm Mean gradient, S 3 mm Hg Valve area, VTI 2 cm^2 Valve area index, VTI 1.1 cm^2/m^2 Valve area, Vmax 2.1 cm^2 Valve area index, Vmax 1.16 cm^2/m^2 Mitral valve Peak E-wave velocity 88.4 cm/s Peak A-wave velocity 79 cm/s Deceleration time *243 ms 150-230 Peak gradient, D 3 mm Hg Peak E/A ratio 1.1 Tricuspid valve Regurgitant peak velocity 386 cm/s Peak RV-RA gradient, S 60 mm Hg Maximal regurgitant velocity 386 cm/s Systemic veins Estimated CVP 10 mm Hg Right ventricle RV pressure, S *70 mm Hg <30 Pulmonic valve Peak velocity, S 87.2 cm/s Regurgitant velocity, ED 105 cm/s LEGEND: Mean values are shown as u=mean value. Asterisk (*) arellano values outside specified normal range. Prepared and signed by Chivo Yanez [id number]
--- NOTE | 2016-03-15 16:16 | EKG ---
Date Performed: 03/15/2016 Time Performed: 05:18:32 PTAGE: 81 years EKG: ELECTRONIC ATRIAL PACEMAKER ELECTRONIC VENTRICULAR PACEMAKER ABNORMAL RHYTHM ECG PREVIOUS TRACING : 03/14/2016 23.44 Compared to prior tracing no significant change DOCTOR: John Rivera Interpretating Date/Time 03/15/2016 16:15:19
--- NOTE | 2016-03-15 16:26 | EKG ---
Date Performed: 03/14/2016 Time Performed: 23:44:10 PTAGE: 81 years EKG: ELECTRONIC ATRIAL PACEMAKER ELECTRONIC VENTRICULAR PACEMAKER ABNORMAL RHYTHM ECG PREVIOUS TRACING : 03/14/2016 18.48 Compared to prior tracing no significant change DOCTOR: John Rivera Interpretating Date/Time 03/15/2016 16:24:52
--- NOTE | 2016-03-15 16:31 | EKG ---
Date Performed: 03/14/2016 Time Performed: 18:48:25 PTAGE: 81 years EKG: ELECTRONIC ATRIAL PACEMAKER ELECTRONIC VENTRICULAR PACEMAKER ABNORMAL RHYTHM ECG NO PREVIOUS TRACING DOCTOR: John Rivera Interpretating Date/Time 03/15/2016 16:29:38
[2016-03-15] MEDS ORDERED: BISACODYL 10 MG SUPP RECTAL ONE (21:00)
[2016-03-15] MEDS: DOCUSATE SODIUM 100 MG/10 ML UDC PO SCH (22:55)
[2016-03-15] MEDS: TEMAZEPAM 15 MG CAP PO PRN (22:56)
[2016-03-15] MEDS: ATORVASTATIN 10 MG TAB PO SCH (22:56)
--- NOTE | 2016-03-15 23:27 | MG ---
cc: GEORGETTE HERNANDEZ MD Lab No: Date: 03/05/16 Age: Sex: F Race: EEG was obtained on this 81-year-old patient with history of syncope. This EEG shows 10-12 per second alpha activity in the central and posterior head regions. The background is reactive. There are muscle discharges frontally throughout. There is no lateralizing features. Photic stimulation was unremarkable. Hyperventilation not performed. INTERPRETATION Normal predominantly awake EEG. Georgette Hernandez MD [facility]/[place] /5:57 PM /11:22 PM
[2016-03-16] VITALS (8 sets, daily range): BP systolic 83–106; BP diastolic 47–58; PULSE 60–74; RESP 16–22; TEMP 95.5–97.7; O2SAT 90–94
[2016-03-16] MEDS: SODIUM CHLOR 0.9% 1000 ML INJ 1,000 ML IV SCH ×2 (05:03→15:51)
[2016-03-16 07:30] LABS: HEMATOCRIT 31.4 % (35.0-46.0); MEAN CELL VOLUME 85.4 FL (80.0-100.0); MEAN CORPUSCULAR HGB CONC 32.8 % (32.0-36.0); PLATELET COUNT 246 TH/MM3 (150-450); RED BLOOD COUNT 3.68 MIL/MM3 (4.00-5.30); RED CELL DISTRIBUTION WIDTH 15.1 % (11.6-17.2); REVIEW FLAG FINAL; WHITE BLOOD COUNT 8.5 TH/MM3 (4.0-11.0)
[2016-03-16 07:42] LABS: BICARBONATE 30.5 MEQ/L (21.0-32.0); POTASSIUM 3.8 MEQ/L (3.5-5.1)
[2016-03-16] MEDS: ASPIRIN EC 81 MG TABEC PO SCH (08:53)
[2016-03-16] MEDS: DIGOXIN 0.125 MG TAB PO SCH (08:53)
[2016-03-16] MEDS: PANTOPRAZOLE SOD 20 MG DELAYED RELEASE TAB PO SCH ×2 (08:53→20:55)
[2016-03-16] MEDS: AMIODARONE 200 MG TAB PO SCH (08:53)
[2016-03-16] MEDS: DOCUSATE SODIUM 100 MG/10 ML UDC PO SCH ×2 (08:53→20:56)
[2016-03-16] MEDS: CARVEDILOL 3.125 MG TAB PO SCH (08:54)
[2016-03-16] MEDS: POLYETHYLENE GLYCOL 17 GM PKG PO SCH (08:54)
[2016-03-16] MEDS: CITALOPRAM HYDROBROMIDE 40 MG TAB PO SCH (08:54)
[2016-03-16] MEDS: FERROUS SULFATE 325 MG (65 MG ELEMENTAL IRON) TAB PO SCH (08:54)
[2016-03-16] MEDS: BUDESONIDE-FORMOTEROL 160/4.5 MCG INHALER INH SCH ×2 (08:54→20:57)
[2016-03-16] MEDS: FLUTICASONE PROPIONATE 50 MCG/ACT 16 GM NASAL SPRAY NASAL SCH (12:08)
[2016-03-16] MEDS: ACETAMINOPHEN/HYDROcodone 325 MG/5 MG TAB PO PRN ×2 (12:09→20:56)
--- NOTE | 2016-03-16 14:47 | HHI.FF ---
Face to Face Verification Diagnosis: (1) Syncope Physical Therapy Order: Evaluate and Treat Home Health Nursing Order: Medical education Nursing assessment with vital signs Administrative Support Specialist Order: To Evaluate: Support services Order: To Provide: Community services I have seen patient Lyudmila Kumar on 03/16/16. My clinical findings support the need for the requested home health care services because: Deconditioned w/ increased weakness High risk of falls I certify that my clinical findings support that this patient is homebound because: Unsteady gait/balance Unsafe to leave home unassisted Need for psychosocial assistance Tiffanie Tiwari [facility] Mar 16, 2016 14:47
--- NOTE | 2016-03-16 15:02 | HHI.PR ---
Subjective Subjective Remarks mildly dizzy when getting up no cp no palpitations no sob no fever eating okay endorses hx of CAD, SD, no local real estate underwriter yet pacemaker inserted due to syncope PPM interrogated yesterday states BP tends to run low <100 Review of Systems Constitutional Constitutional Remarks 12 point ROS completed, negative except as noted above Vitals/Results Intake & Output 03/15/16 03/15/16 03/16/16 15:00 23:00 07:00 Intake Total 650 ml 3885 ml Output Total 2000 ml Balance -1350 ml 3885 ml Intake Oral 650 ml 1000 ml IV Total 2885 ml Output Urine Total 2000 ml # Voids 3 # Bowel Movements 0 1 Vital Signs Vital Signs Date Time Temp Pulse Resp B/P Pulse Ox O2 Delivery O2 Flow Rate FiO2 03/16/16 12:18 97.3 74 18 83/47 94 03/16/16 09:04 62 97/57 03/16/16 07:56 97.5 60 18 97/52 93 03/16/16 02:15 97.7 61 19 104/56 92 101/54 99/54 03/16/16 01:55 60 03/16/16 00:29 19 03/15/16 23:00 98.1 60 19 104/54 92 100/51 98/51 03/15/16 20:00 97.1 63 19 111/58 91 108/51 107/55 03/15/16 16:00 96.2 62 16 109/56 95 CBC/BMP: 03/16/16 0633 03/16/16 0635 Lab Results Laboratory Tests Test 03/16/16 03/16/16 06:33 06:35 White Blood Count 8.5 TH/MM3 Red Blood Count 3.68 MIL/MM3 Hemoglobin 10.3 GM/DL Hematocrit 31.4 % Mean Corpuscular Volume 85.4 FL Mean Corpuscular Hemoglobin 28.0 PG Mean Corpuscular Hemoglobin 32.8 % Concent Red Cell Distribution Width 15.1 % Platelet Count 246 TH/MM3 Mean Platelet Volume 8.4 FL Sodium Level 141 MEQ/L Potassium Level 3.8 MEQ/L Chloride Level 105 MEQ/L Carbon Dioxide Level 30.5 MEQ/L Anion Gap 6 MEQ/L Blood Urea Nitrogen 11 MG/DL Creatinine 0.90 MG/DL Estimat Glomerular Filtration 60 ML/MIN Rate Random Glucose 79 MG/DL Calcium Level 7.9 MG/DL Physical Exam General General Appearance: Well Developed, Well Nourished, No Acute Distress, Comfortable Eyes Eye Exam: Pupils Equal, Pupils Reactive Ears & Nose Ears & Nose Exam: Nasal Mucosa [place] Throat Throat Exam: Oral Mucosa [place] & Moist Neck Neck Exam: Neck Supple, Trachea Midline Pulmonary Resp Exam: Breath Sounds Equal, No Distress Cardiology CV Exam: Regular, Pacemaker Gastrointestinal/Abdomen GI Exam: Soft, Non-Tender, Bowel Sounds Present, Non-Distended Musculoskeletal MS Exam: Joints Intact Integumentary Skin Exam: Warm, Dry Extremeties Extremities Exam: No Edema, Pedal Pulses Palpable Neurologic Neuro Exam: Alert, Awake, Oriented, Speech Clear, Moving All Extremities, No Focal Deficits Psychiatric Psych Exam: Appropriate Responses VTE Prophylaxis VTE Prophylaxis Device: SCDs Assessment/Plan Problem List: (1) Syncope (2) CAD (coronary artery disease) (3) Pacemaker (4) Hx of cancer of lung Plan: on remission (5) History of recent fall (6) Laceration of face (7) Orbital floor fracture (8) Elevated d-dimer (9) Dehydration (10) Acute kidney injury (11) Anxiety and depression Assessment/Plan continuous cardiac telemetry echo done, EF 50% CUS done, no significant stenosis CTA neg. PE EEG normal PPM interrogated, stable consult cardiology for evaluation, hx syncope that required PPM insertion. Has no local real estate underwriter, requesting Dr. [facility] q shift, so far negative BP noted 80-100s, states this is the norm for her will hold Coreg for now Dig level pending Dec. IVF, renal function improving PT for evaluation CM for dc planning, hopefully discharge tomorrow Bowel regimen voiding okay Labs reviewed, stable Check UA/UC D/W RN D/W Dr. Martin D/W pt This patient was seen by myself and Dr. Martin, this note is written on his behalf. Problem Qualifiers (1) Syncope: Qualified Code: R55 - Syncope, unspecified syncope type (2) Laceration of face: Qualified Code: S01.81XS - Laceration of face, sequela (3) Orbital floor fracture: Qualified Code: S02.32XS - Closed fracture of left orbital floor, sequela Tiffanie Tiwari Mar 16, 2016 15:02
[2016-03-16 17:16] LABS: BACTERIA, URINE RARE /hpf; BLOOD, URINE TRACE (NEG); COMMENT (UR) CULTURE INDICATED; CULTURE IF INDICATED CULTURE INDICATED; GLUCOSE,URINE NEG (NEG); HYALINE CAST, URINE 1 /lpf (RARE); KETONE, URINE NEG (NEG); MUCUS URINE FEW /lpf (OCC); NITRITE,URINE NEG (NEG); PH, URINE 5.5 (5.0-8.5); SQUAMOUS EPITHELIAL CELL URINE 1 /hpf (0-5); URINE COLOR YELLOW (YELLW/STRAW)
[2016-03-16] MEDS ORDERED: PILL SPLITTER OTHER PRN (20:00)
[2016-03-16] MEDS ORDERED: LORazepam 0.5 MG TAB PO PRN (20:00)
[2016-03-16] MEDS: ATORVASTATIN 10 MG TAB PO SCH (20:55)
[2016-03-16] MEDS: CIPROFLOXACIN 250 MG TAB PO SCH (20:55)
[2016-03-16] MEDS: TEMAZEPAM 15 MG CAP PO PRN (20:55)
[2016-03-16] MEDS: SODIUM CHLORIDE 0.9% FLUSH 5 ML FLUSH FLUSH SCH (20:56)
[2016-03-17] VITALS (8 sets, daily range): BP systolic 90–129; BP diastolic 53–63; PULSE 60–80; RESP 16–22; TEMP 96.1–98.8; O2SAT 91–96
[2016-03-17] MEDS: ACETAMINOPHEN/HYDROcodone 325 MG/5 MG TAB PO PRN ×2 (05:44→21:13)
[2016-03-17] MEDS: DOCUSATE SODIUM 100 MG/10 ML UDC PO SCH ×3 (09:00→21:12)
--- NOTE | 2016-03-17 09:18 | HHI.PR ---
Subjective Subjective Remarks No dizziness no cp no sob no palpitations states she's on oxygen at home, 3L/NC no fever no n/v seen by cardiology this morning Review of Systems Constitutional Constitutional Remarks 12 point ROS completed, negative except as noted above Vitals/Results Intake & Output 03/16/16 03/16/16 03/17/16 15:00 23:00 07:00 Intake Total 1233 ml 389 ml 411 ml Output Total 650 ml 300 ml 1 ml Balance 583 ml 89 ml 410 ml Intake Oral 360 ml IV Total 873 ml 389 ml 411 ml Output Urine Total 650 ml 300 ml Stool Total 1 ml # Voids 2 # Bowel Movements 1 Vital Signs Vital Signs Date Time Temp Pulse Resp B/P Pulse Ox O2 Delivery O2 Flow Rate FiO2 03/17/16 07:51 96.7 64 18 117/58 92 03/17/16 06:00 98.8 70 16 115/60 96 03/17/16 00:00 98.7 60 16 112/58 94 03/16/16 20:00 63 20 105/54 93 03/16/16 20:00 Nasal Cannula 3.00 03/16/16 20:00 60 03/16/16 20:00 96.9 60 16 102/58 93 03/16/16 20:00 61 22 95/50 90 03/16/16 16:24 95.5 60 18 106/55 92 03/16/16 12:18 97.3 74 18 83/47 94 CBC/BMP: 03/16/16 0633 03/16/16 0635 Lab Results Laboratory Tests Test 03/16/16 03/17/16 16:15 05:30 Urine Color YELLOW Urine Turbidity CLEAR Urine pH 5.5 Urine Specific [place] 1.021 Urine Protein TRACE mg/dL Urine Glucose (UA) NEG mg/dL Urine Ketones NEG mg/dL Urine Occult Blood TRACE Urine Nitrite NEG Urine Bilirubin NEG Urine Urobilinogen LESS THAN 2.0 MG/DL Urine Leukocyte Esterase LARGE Urine RBC 3 /hpf Urine WBC 28 /hpf Urine Squamous Epithelial 1 /hpf Cells Urine Bacteria RARE /hpf Urine Hyaline Casts 1 /lpf Urine Mucus FEW /lpf Microscopic Urinalysis Comment CULTURE INDICATED Random Cortisol 15.8 MCG/DL Microbiology Microbiology 03/16/16 Urine Culture, Received Pending Physical Exam General General Appearance: Well Developed, Well Nourished, No Acute Distress, Comfortable Eyes Eye Exam: Pupils Equal, Pupils Reactive Ears & Nose Ears & Nose Exam: Nasal Mucosa [place] Throat Throat Exam: Oral Mucosa [place] & Moist Neck Neck Exam: Neck Supple, Trachea Midline Pulmonary Resp Exam: Breath Sounds Equal, No Distress Cardiology CV Exam: Regular, Pacemaker Gastrointestinal/Abdomen GI Exam: Soft, Non-Tender, Bowel Sounds Present, Non-Distended Musculoskeletal MS Exam: Joints Intact Integumentary Skin Exam: Warm, Dry Extremeties Extremities Exam: No Edema, Pedal Pulses Palpable Neurologic Neuro Exam: Alert, Awake, Oriented, Speech Clear, Moving All Extremities, No Focal Deficits Psychiatric Psych Exam: Appropriate Responses VTE Prophylaxis VTE Prophylaxis Device: SCDs Assessment/Plan Problem List: (1) Syncope (2) CAD (coronary artery disease) (3) Pacemaker (4) Hx of cancer of lung Plan: on remission (5) History of recent fall (6) Laceration of face (7) Orbital floor fracture (8) Elevated d-dimer (9) Dehydration (10) Acute kidney injury (11) Anxiety and depression (12) COPD (chronic obstructive pulmonary disease) Assessment/Plan continuous cardiac telemetry echo done, EF 50% CUS done, no significant stenosis CTA neg. PE EEG normal PPM interrogated, stable consult cardiology for evaluation, hx syncope that required PPM insertion. Has no local per diem nurse, requested Dr. [facility] q shift, so far negative BP better 110s Coreg on hold Dig level pending Dec. IVF, renal function improving PT for evaluation CM for dc planning HHC/PT, uses oxygen at home Bowel regimen DC alberto UA/UC + UTI, culture pending, started on Cipro Feels better will have RN ambulate Cardiology evaluated this morning, note pending Possible dc this afternoon D/W RN D/W Dr. Martin D/W pt This patient was seen by myself and Dr. Martin, this note is written on his behalf. Problem Qualifiers (1) Syncope: Qualified Code: R55 - Syncope, unspecified syncope type (2) Laceration of face: Qualified Code: S01.81XS - Laceration of face, sequela (3) Orbital floor fracture: Qualified Code: S02.32XS - Closed fracture of left orbital floor, sequela (4) COPD (chronic obstructive pulmonary disease): Qualified Code: J44.9 - Chronic obstructive pulmonary disease, unspecified COPD type Tiffanie Tiwari Mar 17, 2016 09:18
[2016-03-17] MEDS ORDERED: CIPR250T52 PO (09:19)
--- NOTE | 2016-03-17 09:20 | HHI.DCPOC ---
Discharge Care Plan Diagnosis: (1) Syncope (2) CAD (coronary artery disease) (3) Pacemaker (4) Laceration of face (5) Orbital floor fracture (6) Hx of cancer of lung (7) History of recent fall (8) Dehydration (9) Anxiety and depression (10) Acute kidney injury (11) Elevated d-dimer (12) COPD (chronic obstructive pulmonary disease) Your Health Problems Are: Anxiety Difficulty with ADL Goals to Promote Your Health * To prevent worsening of your condition and complications * To maintain your health at the optimal level Directions to Meet Your Goals Take your medications as prescribed Follow your dietary instruction Follow activity as directed Keep your appointments as scheduled Take your immunizations and boosters as scheduled If your symptoms worsen call your PCP, if no PCP go to Urgent Care Center or Emergency Room Smoking is Dangerous to Your Health. Avoid second hand smoke Call the 24-hour hour crisis hotline for domestic abuse at Tiffanie Tiwari Mar 17, 2016 09:20
--- NOTE | 2016-03-17 09:59 | PD.CONS ---
HPI Service Cardiology Consult Requested By Primary Care Physician Tye Juan M.D. History of Present Illness 81 year-old lady admitted with TONIO and UTI in the setting of syncope. PMHX significant for lung CA s/p resection, CAD, PPM ([employer]) and urinary retention. 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 She is not sure how long she was out, she awoke on her own. Reported associated nausea, vomiting, decreased appetite, but denied chest pain, shortness of breath or palpitations. She had a similar episode on February 25 2016 while stepping on the first step of a two step step-ladder, however at that time sustained an orbital fracture. The patient also complains of constipation with no bowel movement for the past four days, night sweats in the past few weeks. Cardiology consulted to evaluated for cardio source of syncope. Review of Systems Consitutional: DENIES: Fatigue, Fever, Chills, Weight gain, Weight loss Eyes: DENIES: Amaurosis F[place], Change in vision HEENT: COMPLAINS OF: Lightheadedness Respiratory: DENIES: See HPI, Cough, Snoring, Shortness of breath, Wheezing, Sputum production Cardiovascular: DENIES: See HPI, Chest pain, Palpitations, Syncope, Tachycardia Gastrointestinal: COMPLAINS OF: Nausea Genitourinary: COMPLAINS OF: Difficulty voiding Integumentary: DENIES: Rash Neurologic: DENIES: Tingling or numbness, Memory problems, Poor Balance, Stroke symptoms Musculoskeletal: DENIES: Joint pain, Muscle pain, Limited range of motion, Back pain Psychiatric: DENIES: Anxiety, Depression, Sleep disturbances Hematologic: DENIES: Bruising tendencies, Bleeding tendencies Endocrine: DENIES: Weight gain, Weight loss, Thyroid disease Past Family Social History Allergies: Coded Allergies: Trazodone (Verified Allergy, Severe, Nausea/Vomiting, 03/14/16) Percocet (Unverified Allergy, Intermediate, VOMITING, 03/14/16) Uncoded Allergies: TRAZ (Allergy, Intermediate, VOMITING, 03/22/14) Past Medical History 1. Lung Cancer 2. CAD 3. Diabetes mellitus 4. GERD Past Surgical History Appendectomy Bladder repair Hysterectomy Joint replacement in both knees Tonsillectomy Pacemaker times four insertion, the first pacemaker was in 1985, second 1995, third was 2005, fourth she thinks was 2010. Reported Medications Reported Meds & Active Scripts Active Zofran Odt (Ondansetron Odt) 4 Mg Tab 4 Mg SL Q6HR PRN Lortab (Hydrocodone-Acetaminophen) 5-325 Mg Tab 1-2 Tab PO Q6H PRN Reported Miralax Powder (Polyethylene Glycol 3350 Powder) 17 Gm Powd 17 Gm PO TID Mix and dissolve one measuring cap-ful (17 grams) in water or juice. Levaquin (Levofloxacin) 500 Mg Tab 500 Mg PO DAILY [Oxygen 2L] Aspirin 81 Mg Tabdr 81 Mg PO DAILY Coq10 (Coenzyme Q10 (Ubidecarenone)) 200 Mg Cap 1 Cap PO DAILY Coq-10 (Coenzyme Q10 (Ubidecarenone)) 100 Mg Cap 200 Ferrous Sulfate 325 Mg Tab 325 Mg PO DAILY Nasacort Allergy 24Hr Nasal (Triamcinolone Nasal) 55 Mcg/Act Spr 2 [place] EACH NARE DAILY Potassium Chloride ER (Potassium Chloride) 20 Meq Tab 20 Meq PO TID Omeprazole 20 Mg Tab 20 Mg PO BID Digoxin 0.125 Mg Tab 0.125 Mg PO DAILY Carvedilol 3.125 Mg Tab 3.125 Mg PO BID Amiodarone (Amiodarone HCl) 200 Mg Tab 200 Mg PO DAILY Furosemide 40 Mg Tab 40 Mg PO DAILY Calcitriol 0.25 Mcg Cap 0.25 Mcg PO EVERY OTHER DAY Citalopram (Citalopram Hydrobromide) 40 Mg Tab 40 Mg PO DAILY Advair Diskus Inh (Fluticasone-Salmeterol Inh) 250-50 Mcg/Blist Aer 1 Puff INH BID Rinse mouth after use. Lorazepam 1 Mg Tab 1 Mg PO BID PRN Atorvastatin (Atorvastatin Calcium) 10 Mg Tab 10 Mg PO HS Temazepam 30 Mg Cap 30 Mg PO HS PRN Active Ordered Medications Current Medications Medications (Trade) Dose Ordered Sig/Mya Route Start Time Stop Time Status Last Admin (NS 1000 ml Inj) 1,000 ml @ 50 mls/hr Q20H IV 03/14/16 23:25 03/16/16 15:51 (NS Flush) 2 ml UNSCH PRN FLUSH 03/14/16 23:30 (NS Flush) 2 ml BID FLUSH 03/15/16 09:00 03/16/16 20:56 (Tylenol) 650 mg Q4H PRN PO 03/14/16 23:30 (Zofran Inj) 4 mg Q6H PRN IVP 03/14/16 23:30 (Narcan Inj) 0.4 mg UNSCH PRN IV 03/14/16 23:30 (Cordarone) 200 mg DAILY PO 03/15/16 10:00 03/16/16 08:53 (Ecotrin Ec) 81 mg DAILY PO 03/15/16 09:00 03/16/16 08:53 (Lipitor) 10 mg HS PO 03/15/16 21:00 03/16/16 20:55 (Coreg) 3.125 mg BID PO 03/15/16 10:00 Hold 03/16/16 08:54 (Lanoxin) 0.125 mg DAILY PO 03/15/16 09:00 03/16/16 08:53 (Ferrous Sulfate) 325 mg DAILY PO 03/15/16 10:00 03/16/16 08:54 (Protonix) 20 mg BID PO 03/15/16 10:00 03/16/16 20:55 (Restoril) 30 mg HS PRN PO 03/15/16 09:00 03/16/16 20:55 (Symbicort 160-4.5 Inh) 1 puff BID INH 03/15/16 11:00 03/16/16 20:57 (Colace Liq) 100 mg Q12HR PO 03/15/16 21:00 03/16/16 08:53 (Miralax) 17 gm DAILY PO 03/16/16 09:00 03/16/16 08:54 (Flonase Nguyễn Spr) 2 spray DAILY@12 NASAL 03/17/16 12:00 03/16/16 12:08 (Cipro) 250 mg Q12HR PO 03/16/16 21:00 03/16/16 20:55 ([place] 5-325 Mg) 0.5 tab Q4H PRN PO 03/16/16 22:00 03/17/16 05:44 (CeleXA) 20 mg DAILY PO 03/17/16 09:00 (Ativan) 0.25 mg BID PRN PO 03/16/16 20:00 (Pill Splitter) 1 ea UNSCH PRN OTHER 03/16/16 20:00 Family History Noncontributory Physical Exam Vital Signs Vital Signs Date Time Temp Pulse Resp B/P Pulse Ox O2 Delivery O2 Flow Rate FiO2 03/17/16 07:51 96.7 64 18 117/58 92 03/17/16 06:00 98.8 70 16 115/60 96 03/17/16 00:00 98.7 60 16 112/58 94 03/16/16 20:00 63 20 105/54 93 03/16/16 20:00 Nasal Cannula 3.00 03/16/16 20:00 60 03/16/16 20:00 96.9 60 16 102/58 93 03/16/16 20:00 61 22 95/50 90 03/16/16 16:24 95.5 60 18 106/55 92 03/16/16 12:18 97.3 74 18 83/47 94 Physical Exam GENERAL: Well-nourished, well-developed patient. SKIN: Warm and dry. HEAD: Normocephalic. EYES: No scleral icterus. No injection or drainage. NECK: Supple, trachea midline. No JVD or lymphadenopathy. CARDIOVASCULAR: Regular rate and rhythm without murmurs, gallops, or rubs. RESPIRATORY: Breath sounds equal bilaterally. No accessory muscle use. GASTROINTESTINAL: Abdomen soft, non-tender, nondistended. EXTREMITIES: No cyanosis, or edema. NEUROLOGICAL: Awake, alert, and oriented x 3. Non-focal. Laboratory Laboratory Tests Test 03/16/16 03/17/16 16:15 05:30 Urine Color YELLOW Urine Turbidity CLEAR Urine pH 5.5 Urine Specific [place] 1.021 Urine Protein TRACE Urine Glucose (UA) NEG Urine Ketones NEG Urine Occult Blood TRACE Urine Nitrite NEG Urine Bilirubin NEG Urine Urobilinogen LESS THAN 2.0 Urine Leukocyte Esterase LARGE Urine RBC 3 Urine WBC 28 Urine Squamous Epithelial 1 Cells Urine Bacteria RARE Urine Hyaline Casts 1 Urine Mucus FEW Microscopic Urinalysis Comment CULTURE INDICATED Random Cortisol 15.8 Date/Time Procedure Status Source Growth 03/16/16 16:15 Urine Culture Received Urine Clean Catch Pending Result Diagram: 03/16/16 0633 03/16/16 0635 Imaging Last Impressions Carotid Artery Ultrasound 03/15/16 0000 Signed Impressions: Service Date/Time: Tuesday, March 15, 2016 08:55 - CONCLUSION: Atherosclerotic soft and calcific plaque in bilateral carotids. No evidence of anatomic or physiologic stenosis. Khanh Duong MD CT Angiography 03/14/[id number] Signed Impressions: Service Date/Time: February 21:34 - CONCLUSION: No evidence of pulmonary embolism Win Chery MD Head CT 03/14/[id number] Signed Impressions: Service Date/Time: , March 14, 2016 19:24 - CONCLUSION: No acute findings Win Chery MD Chest X-Ray 03/14/16 180 Signed Impressions: Service Date/Time: February 18:16 - CONCLUSION: Stable bilateral parenchymal lung scarring or atelectasis Win Chery MD Assessment and Plan Problem List: (1) CAD (coronary artery disease) Assessment and Plan: 81 y/o F admitted with syncope in the setting of UTI. She does reports cardiac hx however to active cardiac complaints. Last ECHO and Stress test per patient in 2014. PPM interrogation unremarkable. ECHO done revealed normal LV systolic function with no wall motion abnormalities or valvulopathies. Get MPI to assess ischemia. Past history of malignancy. Consider chest CT to assess Lung CA/mets and GI work up given recent symptoms or night sweats and constipation. Recommendations: -MPI. If negative. She can follow with cardiology as outpatient -Cont aggressive medical management for CAD Thank you for the opportunity to take part int he carer of this patient. Will be available as PRN for any questions or concerns (2) Pacemaker (3) Acute kidney injury Problem Qualifiers (1) CAD (coronary artery disease): Krishna Keating MD Mar 17, 2016 09:59
[2016-03-17] MEDS: ONDANSETRON HCL 4 MG/2 ML VIAL IVP PRN (11:05)
[2016-03-17] MEDS: SODIUM CHLORIDE 0.9% FLUSH 5 ML FLUSH FLUSH SCH ×2 (11:05→21:14)
[2016-03-17] MEDS: PANTOPRAZOLE SOD 20 MG DELAYED RELEASE TAB PO SCH ×2 (11:08→21:13)
[2016-03-17] MEDS: CITALOPRAM HYDROBROMIDE 20 MG TAB PO SCH (11:08)
[2016-03-17] MEDS: FERROUS SULFATE 325 MG (65 MG ELEMENTAL IRON) TAB PO SCH (11:08)
[2016-03-17] MEDS: CIPROFLOXACIN 250 MG TAB PO SCH ×2 (11:08→21:13)
[2016-03-17] MEDS: AMIODARONE 200 MG TAB PO SCH (11:08)
[2016-03-17] MEDS: POLYETHYLENE GLYCOL 17 GM PKG PO SCH (11:09)
[2016-03-17] MEDS: ASPIRIN EC 81 MG TABEC PO SCH (11:09)
[2016-03-17] MEDS: DIGOXIN 0.125 MG TAB PO SCH (11:09)
[2016-03-17] MEDS: BUDESONIDE-FORMOTEROL 160/4.5 MCG INHALER INH SCH ×2 (11:09→21:14)
[2016-03-17] MEDS: FLUTICASONE PROPIONATE 50 MCG/ACT 16 GM NASAL SPRAY NASAL SCH (11:11)
[2016-03-17] MEDS: SODIUM CHLOR 0.9% 1000 ML INJ 1,000 ML IV SCH (11:52)
[2016-03-17] MEDS: TEMAZEPAM 15 MG CAP PO PRN (21:13)
[2016-03-17] MEDS: ATORVASTATIN 10 MG TAB PO SCH (21:13)
--- NOTE | 2016-03-17 21:35 | RADRPT ---
EXAM DATE/TIME: 03/17/2016 20:25 [facility] COMPARISON: CHEST SINGLE AP, March 14, 2016, 18:16. INDICATIONS : Left rib pain post fall MEDICAL HISTORY : Carcinoma, lung. Diabetes mellitus type II. Arthritis SURGICAL HISTORY : Hysterectomy. Appendectomy. CABG. Bladder repair ENCOUNTER: Initial ACUITY: 3 weeks PAIN SCORE: 10/10 LOCATION: Left chest FINDINGS: There are mildly displaced fractures of the lateral and posterolateral left 3rd, 4th, 5th, 6th, and 7 th ribs. There is minimal blunting of the left costophrenic angle suggesting small left pleural effu ethan. No evidence of pneumothorax. There is chronic scarring in the mid lungs bilaterally, right gr eater than left and in the left lower lung. Left [id number] catheter tip projects over the proxim al superior vena cava. The heart is normal size. CONCLUSION: Mildly angulated left 3rd through 7th rib fractures. No evidence of pneumothorax. Osorio Smith MD on March 17, 2016 at 21:30 Board Certified Radiologist. This report was verified electronically.
[2016-03-18] VITALS (7 sets, daily range): BP systolic 97–128; BP diastolic 53–63; PULSE 60–68; RESP 18–20; TEMP 95.6–97.6; O2SAT 92–95
[2016-03-18] MEDS: SODIUM CHLOR 0.9% 1000 ML INJ 1,000 ML IV SCH (06:16)
[2016-03-18] MEDS: DOCUSATE SODIUM 100 MG/10 ML UDC PO SCH ×2 (08:43→20:40)
[2016-03-18] MEDS: POLYETHYLENE GLYCOL 17 GM PKG PO SCH (08:44)
[2016-03-18] MEDS: BUDESONIDE-FORMOTEROL 160/4.5 MCG INHALER INH SCH ×2 (08:46→20:42)
[2016-03-18] MEDS: CITALOPRAM HYDROBROMIDE 20 MG TAB PO SCH (08:47)
[2016-03-18] MEDS: PANTOPRAZOLE SOD 20 MG DELAYED RELEASE TAB PO SCH ×2 (08:47→20:41)
[2016-03-18] MEDS: DIGOXIN 0.125 MG TAB PO SCH ×2 (08:47→08:59)
[2016-03-18] MEDS: CIPROFLOXACIN 250 MG TAB PO SCH ×2 (08:47→20:40)
[2016-03-18] MEDS: AMIODARONE 200 MG TAB PO SCH (08:47)
[2016-03-18] MEDS: FERROUS SULFATE 325 MG (65 MG ELEMENTAL IRON) TAB PO SCH (08:47)
[2016-03-18] MEDS: SODIUM CHLORIDE 0.9% FLUSH 5 ML FLUSH FLUSH SCH ×2 (08:55→20:42)
[2016-03-18] MEDS: ASPIRIN EC 81 MG TABEC PO SCH (08:55)
[2016-03-18] MEDS: FLUTICASONE PROPIONATE 50 MCG/ACT 16 GM NASAL SPRAY NASAL SCH (08:55)
[2016-03-18] MEDS ORDERED: REGADENOSON INJ 0.4 MG/5 ML SYR ONE (11:52)
[2016-03-18] MEDS: ACETAMINOPHEN/HYDROcodone 325 MG/5 MG TAB PO PRN ×2 (13:06→20:40)
[2016-03-18] MEDS: ONDANSETRON HCL 4 MG/2 ML VIAL IVP PRN (13:17)
--- NOTE | 2016-03-18 14:09 | HHI.PR ---
Subjective Subjective Remarks No dizziness no cp no sob no palpitations states she's on oxygen at home, 3L/NC no fever no n/v went for STT today did okay, feeling tired now, has a mild headache Review of Systems Constitutional Constitutional Remarks 12 point ROS completed, negative except as noted above Vitals/Results Intake & Output 03/17/16 03/17/16 03/18/16 15:00 23:00 07:00 Intake Total 360 ml 713 ml 390 ml Output Total 950 ml 3 ml Balance -590 ml 713 ml 387 ml Intake Oral 360 ml IV Total 713 ml 390 ml Output Urine Total 950 ml 2 ml Stool Total 1 ml # Voids 2 Vital Signs Vital Signs Date Time Temp Pulse Resp B/P Pulse Ox O2 Delivery O2 Flow Rate FiO2 03/18/16 07:57 97.3 60 20 111/57 92 03/18/16 07:47 Nasal Cannula 3.00 03/18/16 00:00 97.6 67 20 110/63 93 03/17/16 20:00 68 03/17/16 20:00 Nasal Cannula 3.00 03/17/16 20:00 68 03/17/16 20:00 96.7 80 22 120/60 93 03/17/16 16:43 65 111/56 03/17/16 16:42 62 118/58 03/17/16 16:40 97.1 61 18 129/63 93 CBC/BMP: 03/16/16 0633 03/16/16 0635 Physical Exam General General Appearance: Well Developed, Well Nourished, No Acute Distress, Comfortable Eyes Eye Exam: Pupils Equal, Pupils Reactive Ears & Nose Ears & Nose Exam: Nasal Mucosa [place] Throat Throat Exam: Oral Mucosa [place] & Moist Neck Neck Exam: Neck Supple, Trachea Midline Pulmonary Resp Exam: Breath Sounds Equal, No Distress Cardiology CV Exam: Regular, Pacemaker Gastrointestinal/Abdomen GI Exam: Soft, Non-Tender, Bowel Sounds Present, Non-Distended Musculoskeletal MS Exam: Joints Intact Integumentary Skin Exam: Warm, Dry Extremeties Extremities Exam: No Edema, Pedal Pulses Palpable Neurologic Neuro Exam: Alert, Awake, Oriented, Speech Clear, Moving All Extremities, No Focal Deficits Psychiatric Psych Exam: Appropriate Responses VTE Prophylaxis VTE Prophylaxis Device: SCDs Assessment/Plan Problem List: (1) Syncope (2) CAD (coronary artery disease) (3) Pacemaker (4) Hx of cancer of lung Plan: on remission (5) History of recent fall (6) Laceration of face (7) Orbital floor fracture (8) Elevated d-dimer (9) Dehydration (10) Acute kidney injury (11) Anxiety and depression (12) COPD (chronic obstructive pulmonary disease) Assessment/Plan continuous cardiac telemetry echo done, EF 50% CUS done, no significant stenosis CTA neg. PE EEG normal PPM interrogated, stable consult cardiology for evaluation, hx syncope that required PPM insertion. Has no local tree driller, requested Dr. [facility] q shift, so far negative BP better 110s Coreg on hold Dig level pending DC IVF PT for evaluation CM for dc planning HHC/PT, uses oxygen at home Bowel regimen DC alberto-was not d/c yesterday UA/UC + UTI, culture pending, started on Cipro Cardiology input appreciated, STT recommended S/P STT today, results pending Discharge pending STT results D/W RN D/W Dr. Martin D/W pt This patient was seen by myself and Dr. Martin, this note is written on his behalf. Problem Qualifiers (1) Syncope: Qualified Code: R55 - Syncope, unspecified syncope type (2) CAD (coronary artery disease): (3) Laceration of face: Qualified Code: S01.81XS - Laceration of face, sequela (4) Orbital floor fracture: Qualified Code: S02.32XS - Closed fracture of left orbital floor, sequela (5) COPD (chronic obstructive pulmonary disease): Qualified Code: J44.9 - Chronic obstructive pulmonary disease, unspecified COPD type Tiffanie Tiwari Mar 18, 2016 14:08
--- NOTE | 2016-03-18 14:29 | RADRPT ---
EXAM DATE/TIME: 03/18/2016 11:21 [facility] COMPARISON: No previous studies available for comparison. INDICATIONS : Syncope. Nausea and vomiting. Coronary artery disease. DOSE: 25.4 mCi Tc99m Myoview at stress. 8.5 mCi Tc99m Myoview at rest. 0.4 mg Lexiscan STRESS SYMPTOMS: Chest pressure and nausea. EJECTION FRACTION: 69% MEDICAL HISTORY : Diabetes mellitus type 2. SURGICAL HISTORY : Total knee replacement, left. Total knee replacement, right. Appendectomy. Hysterectomy. Tonsillectom y. ENCOUNTER: Initial ACUITY: 1 day PAIN SCALE: 0/10 LOCATION: chest TECHNIQUE: The patient underwent pharmacologic stress with infusion of prescribed dose. Continuous ECG tracing was monitored during stress. Gated SPECT imaging was performed after stress and conventional SPECT i maging was performed at rest. The examination was performed on a SPECT/CT scanner, both attenuation and non-corrected datasets were reviewed. FINDINGS: DISTRIBUTION: The maximum perfused segment at stress is in the anterolateral wall. PERFUSION STUDY: The pattern of perfusion at stress is within normal limits. GATED STUDY: There is intact wall motion and thickening without hypokinetic or dyskinetic segments. CONCLUSION: 1. Unremarkable myocardial perfusion scan. RISK CATEGORY: Low (<1% Annual Mortality Rate) Rod Leslie MD on March 18, 2016 at 14:27 Board Certified Radiologist. This report was verified electronically.
[2016-03-18] MEDS: ATORVASTATIN 10 MG TAB PO SCH (20:41)
[2016-03-18] MEDS: TEMAZEPAM 15 MG CAP PO PRN (21:46)
[2016-03-19] VITALS: BP 113/55; PULSE 60; RESP 18; TEMP 98.6; O2SAT 95
[2016-03-19 04:00] VITALS: BP 100/55; PULSE 58; RESP 18; TEMP 97.8; O2SAT 93
[2016-03-19 08:00] VITALS: BP_SYST 131; BP_SYST 132; BP_SYST 136; BP_DIAS 59; BP_DIAS 63; BP_DIAS 65; PULSE 60; RESP 18; TEMP 95.7; O2SAT 95
[2016-03-19 09:00] VITALS: O2SAT 93
[2016-03-19] MEDS: DOCUSATE SODIUM 100 MG/10 ML UDC PO SCH (09:00)
[2016-03-19] MEDS: SODIUM CHLORIDE 0.9% FLUSH 5 ML FLUSH FLUSH SCH (09:00)
[2016-03-19] MEDS: FERROUS SULFATE 325 MG (65 MG ELEMENTAL IRON) TAB PO SCH (09:05)
[2016-03-19] MEDS: AMIODARONE 200 MG TAB PO SCH (09:05)
[2016-03-19] MEDS: CIPROFLOXACIN 250 MG TAB PO SCH (09:05)
[2016-03-19] MEDS: DIGOXIN 0.125 MG TAB PO SCH (09:05)
[2016-03-19] MEDS: CITALOPRAM HYDROBROMIDE 20 MG TAB PO SCH (09:05)
[2016-03-19] MEDS: ACETAMINOPHEN/HYDROcodone 325 MG/5 MG TAB PO PRN (09:05)
[2016-03-19] MEDS: ASPIRIN EC 81 MG TABEC PO SCH (09:05)
[2016-03-19] MEDS: PANTOPRAZOLE SOD 20 MG DELAYED RELEASE TAB PO SCH (09:06)
[2016-03-19] MEDS: BUDESONIDE-FORMOTEROL 160/4.5 MCG INHALER INH SCH (09:06)
[2016-03-19] MEDS: POLYETHYLENE GLYCOL 17 GM PKG PO SCH (09:06)
[2016-03-19] MEDS: FLUTICASONE PROPIONATE 50 MCG/ACT 16 GM NASAL SPRAY NASAL SCH (09:55)
[2016-03-19 12:00] VITALS: BP 118/58; PULSE 62; RESP 18; TEMP 95.9; O2SAT 93
[2016-03-19 16:00] VITALS: BP 110/63; PULSE 60; RESP 18; TEMP 95.4; O2SAT 95
--- NOTE | 2016-03-19 17:07 | HHI.PR ---
Subjective History of Present Illness No chest pain No SOB No syncope No dizziness. appetite fair/good Hospital Day: 5 Review of Systems Constitutional Constitutional: Weakness (mild but improving. Ambulated today) Constitutional Remarks 10 point review of systems done. Positives noted generalized weakness improving , cough nonproductive, . Her systems negative or unremarkable Pulmonary Respiratory: Coughing (nonproductive) GI/Abdomen GI/Abdominal Exam: Abdominal Pain GI/Abdomen Remarks Mild left flank pain. Vitals/Results Intake & Output 03/18/16 03/18/16 03/19/16 15:00 23:00 07:00 Intake Total 324 ml 118 ml 240 ml Balance 324 ml 118 ml 240 ml Intake Oral 118 ml 240 ml IV Total 324 ml # Voids 2 3 # Bowel Movements 1 Vital Signs Vital Signs Date Time Temp Pulse Resp B/P Pulse Ox O2 Delivery O2 Flow Rate FiO2 03/19/16 12:00 95.9 62 18 118/58 93 03/19/16 09:00 93 Nasal Cannula 3.00 03/19/16 08:00 95.7 60 18 132/63 95 136/65 131/59 03/19/16 04:00 97.8 58 18 100/55 93 03/19/16 02:53 Nasal Cannula 3.00 03/19/16 00:00 98.6 60 18 113/55 95 03/18/16 22:00 Nasal Cannula 3.00 03/18/16 21:44 19 03/18/16 20:00 96.4 63 18 110/59 94 97/53 128/60 03/18/16 16:58 104/53 103/59 109/59 CBC/BMP: 03/16/16 0633 03/16/16 0635 Imaging Remarks Last Impressions Myocardial Perfusion Scan Nuc Med 03/18/16 0000 Signed Impressions: Service Date/Time: Friday, March 18, 2016 11:21 - CONCLUSION: 1. Unremarkable myocardial perfusion scan. RISK CATEGORY: Low (<1%% Annual Mortality Rate) Rod Leslie MD Ribs X-Ray 03/17/16 0000 Signed Impressions: Service Date/Time: Thursday, March 17, 2016 20:25 - CONCLUSION: Mildly angulated left 3rd through 7th rib fractures. No evidence of pneumothorax. Osorio Smith MD Carotid Artery Ultrasound 03/15/16 0000 Signed Impressions: Service Date/Time: Tuesday, March 15, 2016 08:55 - CONCLUSION: Atherosclerotic soft and calcific plaque in bilateral carotids. No evidence of anatomic or physiologic stenosis. Khanh Duong MD CT Angiography 03/14/161954 Signed Impressions: Service Date/Time: February 21:34 - CONCLUSION: No evidence of pulmonary embolism Win Chery MD Head CT 03/14/16 190 Signed Impressions: Service Date/Time: February 19:24 - CONCLUSION: No acute findings Win Chery MD Chest X-Ray 03/14/16 180 Signed Impressions: Service Date/Time: February 18:16 - CONCLUSION: Stable bilateral parenchymal lung scarring or atelectasis Win Chery MD Cardiology Studies Remarks Have MRI due to pacemaker, other metal interbody. Follow up as an outpatient Physical Exam General General Appearance: Well Developed, Well Nourished, No Acute Distress, Comfortable Eyes Eye Exam: Pupils Equal, Pupils Reactive Ears & Nose Ears & Nose Exam: Nasal Mucosa [place] Throat Throat Exam: Oral Mucosa [place] & Moist Neck Neck Exam: Neck Supple, Trachea Midline Pulmonary Resp Exam: Breath Sounds Equal, No Distress Cardiology CV Exam: Regular, Pacemaker Gastrointestinal/Abdomen GI Exam: Soft, Non-Tender, Bowel Sounds Present, Non-Distended Musculoskeletal MS Exam: Joints Intact Integumentary Skin Exam: Warm, Dry Extremeties Extremities Exam: No Edema, Pedal Pulses Palpable Extremeties Remarks Ambulated twice today. Up in chair Neurologic Neuro Exam: Alert, Awake, Oriented, Speech Clear, Moving All Extremities, No Focal Deficits Psychiatric Psych Exam: Appropriate Responses VTE Prophylaxis VTE Prophylaxis Device: SCDs Assessment/Plan Problem List: (1) Syncope (2) CAD (coronary artery disease) (3) Pacemaker (4) Hx of cancer of lung Plan: on remission (5) History of recent fall (6) Laceration of face (7) Orbital floor fracture (8) Elevated d-dimer (9) Dehydration (10) Acute kidney injury (11) Anxiety and depression (12) COPD (chronic obstructive pulmonary disease) Assessment/Plan continuous cardiac telemetry, a stress rhythm heart rate 61 echo done, EF 50% CUS done, no significant stenosis CTA neg. PE EEG normal PPM interrogated, stable consult cardiology for evaluation, hx syncope that required PPM insertion. 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 [facility] [employer] q shift, so far negative day BP better 110s, and as low as 103 systolic. Coreg on hold for now PT for evaluation, ambulated 2 and up in chair CM for dc planning HHC/PT, uses oxygen at home Bowel regimen and current issues DC alberto-was not d/c yesterday UA/UC + UTI, culture pending, started on Cipro, voiding without issues S/P STT today, results pending Discharge was pending an MRI the patient is unable to have due to pacemaker and other metal in her body. Look at cardiac follow-up as an outpatient Discharge possible today or in a.m. we'll discuss with Dr. Martin D/W Dr. Martin D/W pt This patient was seen by myself and Dr. Martin, this note is written on his behalf. Problem Qualifiers (1) Syncope: Qualified Code: R55 - Syncope, unspecified syncope type (2) CAD (coronary artery disease): (3) Laceration of face: Qualified Code: S01.81XS - Laceration of face, sequela (4) Orbital floor fracture: Qualified Code: S02.32XS - Closed fracture of left orbital floor, sequela (5) COPD (chronic obstructive pulmonary disease): Qualified Code: J44.9 - Chronic obstructive pulmonary disease, unspecified COPD type Claudia Jorgensen Mar 19, 2016 17:07
--- NOTE | 2016-03-19 17:40 | HHI.DS ---
Discharge Summary Admission Date Mar 14, 2016 at 23:29 Discharge Date: Mar 19, 2016 Admitting Diagnosis syncope Brief History This was a pleasant 81 year-old female who looks to be her stated age. She has been in her usual state of health until yesterday. She stated that she got up to go to the kitchen to get some lemon water and when she got into the kitchen, she had a dizzy sensation. She sat down briefly to try to see if this dizzy sensation would pass and she fell to the floor and had a syncopal episode. She is not sure how long she was out, but she was able to call for her friend who lives with her. The friend did tell the ER staff that she did hear her hit the floor. The patient awoke on her own. Her other symptoms noted have been some nausea, vomiting, decreased appetite, but denied any cough. No headache. No acute chest pain or shortness of breath at this incident. According to the record and patient, she fell on February 24 while stepping on the first step of a two step step-ladder. She was treated for an orbital fracture and possibly some mild rib fractures versus musculoskeletal injury during this time. She was given pain medicine when she went home from this visit. She states that since this visit, that is when she has noticed her nausea and vomiting, decreased appetite, and was concerned that maybe some of her medicines were making her sick. She is still very sore in her chest and ribs on the left side to tactile stimulation. She also notes some urinary stream flow issues. She states that since this fall, she has been dribbling or having a very low stream. The patient has not voided since about 4 o'clock day before admission when coming to the emergency room. CBC/BMP: 03/16/16 0633 03/16/16 0635 Imaging Last Impressions Myocardial Perfusion Scan Nuc Med 03/18/16 0000 Signed Impressions: Service Date/Time: Friday, March 18, 2016 11:21 - CONCLUSION: 1. Unremarkable myocardial perfusion scan. RISK CATEGORY: Low (<1%% Annual Mortality Rate) Rod Leslie MD Ribs X-Ray 03/17/16 0000 Signed Impressions: Service Date/Time: Thursday, March 17, 2016 20:25 - CONCLUSION: Mildly angulated left 3rd through 7th rib fractures. No evidence of pneumothorax. Osorio Smith MD Carotid Artery Ultrasound 1/27/17 0000 Signed Impressions: Service Date/Time: Tuesday, March 15, 2016 08:55 - CONCLUSION: Atherosclerotic soft and calcific plaque in bilateral carotids. No evidence of anatomic or physiologic stenosis. Khanh Duong MD CT Angiography 03/14/161954 Signed Impressions: Service Date/Time: , March 14, 2016 21:34 - CONCLUSION: No evidence of pulmonary embolism Win Chery MD Head CT 03/14/161905 Signed Impressions: Service Date/Time: , March 14, 2016 19:24 - CONCLUSION: No acute findings Win Chery MD Chest X-Ray 03/14/16 180 Signed Impressions: Service Date/Time: February 18:16 - CONCLUSION: Stable bilateral parenchymal lung scarring or atelectasis Win Chery MD PE at Discharge Physical Exam General General Appearance: Well Developed, Well Nourished, No Acute Distress, Comfortable Eyes Eye Exam: Pupils Equal, Pupils Reactive Ears & Nose Ears & Nose Exam: Nasal Mucosa [place] Throat Throat Exam: Oral Mucosa [place] & Moist Neck Neck Exam: Neck Supple, Trachea Midline Pulmonary Resp Exam: Breath Sounds Equal, No Distress Cardiology CV Exam: Regular, Pacemaker Gastrointestinal/Abdomen GI Exam: Soft, Non-Tender, Bowel Sounds Present, Non-Distended Musculoskeletal MS Exam: Joints Intact Integumentary Skin Exam: Warm, Dry Extremeties Extremities Exam: No Edema, Pedal Pulses Palpable Extremeties Remarks Ambulated twice today. Up in chair Neurologic Neuro Exam: Alert, Awake, Oriented, Speech Clear, Moving All Extremities, No Focal Deficits Psychiatric Psych Exam: Appropriate Responses VTE Prophylaxis VTE Prophylaxis Device: SCDs Hospital Course This is the problem list and diagnosis of the treatment regimen while patient was in the hospital. She also had old records that were obtained on admission, re-her cardiac history. (1) Syncope (2) CAD (coronary artery disease) (3) Pacemaker (4) Hx of cancer of lung Plan: on remission (5) History of recent fall (6) Laceration of face (7) Orbital floor fracture (8) Elevated d-dimer (9) Dehydration (10) Acute kidney injury (11) Anxiety and depression (12) COPD (chronic obstructive pulmonary disease) Plan of care and diagnostic studies are as follows: She had continuous cardiac telemetry, no acute issues during her hospital stay An echo was done, showed EF 50% CUS done, no significant stenosis CT scan done to rule out PE. Test was negative EEG was also performed with normal exam PPM interrogated, stable, this was done to rule out any dysrhythmias that could cause her a syncopal episode Consult cardiology for evaluation, hx syncope that required PPM insertion. 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 [facility] q shift, and with ambulation. negative negative findings throughout her stay BP BP has waxed and waned with some hypotension noted. Patient's Coreg was put on hold, and will not be restarted on discharge. 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 His labs were followed with cardiology as well as the hospitalist. There was discussion about doing an MRI, patient has pacemaker and multiple metal in body. Unable to perform. Gentle hydration throughout the initial stay, but then DC'd when patient was taking by mouth liquid and foods. PT in for evaluation and ambulation treatment plan. Patient was walked, and evaluated for her safety to be out of bed per physical therapy. No acute issues of syncope or blood pressure problems during ambulation. Bowel regimen initiated and carried out through hospital stay. No problems of constipation or diarrhea. Patient had some urinary retention and dysuria on admission. Rueda was placed or accurate I&O monitoring. discontinued 48 hours before discharge without a event. She was voiding without urgency. UTI was discovered on admission. She was placed on Cipro, and we will take 5 more doses after discharge. UA/UC + UTI, culture pending, started on Cipro On 03/19/16 patient had ambulated without distress, labs and rhythm are stable for discharge. Occasions and follow-ups have been discussed with patient. Stable for discharge. Pt Condition on Discharge: Stable Discharge Disposition: Disch w/ Home Health Serv Discharge Instructions DIET: Follow Instructions for: Heart Healthy Diet Activities you can perform: Regular-No Restrictions Follow up Referrals: Cardiology PCP Follow-up New Medications: Ciprofloxacin (Cipro) 250 Mg Tab 250 MG PO Q12HR Infection #5 Ref 0 TAB Continued Medications: Amiodarone (Amiodarone) 200 Mg Tab 200 MG PO DAILY Regulate Heart Beat #30 Ref 0 TAB Aspirin (Aspirin) 81 Mg Tabdr 81 MG PO DAILY TAB Atorvastatin (Atorvastatin) 10 Mg Tab 10 MG PO HS Cholesterol Management #30 Ref 0 TAB Calcitriol (Calcitriol) 0.25 Mcg Cap 0.25 MCG PO EVERY OTHER DAY Calcium Supplement #30 Ref 0 CAP Carvedilol (Carvedilol) 3.125 Mg Tab 3.125 MG PO BID #60 Ref 0 TAB Citalopram (Citalopram) 40 Mg Tab 40 MG PO DAILY Control Depression #30 Ref 0 TAB Coenzyme Q10 (Ubidecarenone) (Coq10) 200 Mg Cap 1 CAP PO DAILY Digoxin (Digoxin) 0.125 Mg Tab 0.125 MG PO DAILY Regulate Heart Beat #30 Ref 0 TAB Ferrous Sulfate (Ferrous Sulfate) 325 Mg Tab 325 MG PO DAILY Nutritional Supplement #30 Ref 0 TAB Fluticasone-Salmeterol Inh (Advair Diskus Inh) 250-50 Mcg/Blist Aer 1 PUFF INH BID Rinse mouth after use. #1 Ref 0 INHALER Furosemide (Furosemide) 40 Mg Tab 40 MG PO DAILY #30 Ref 0 TAB Lorazepam (Lorazepam) 1 Mg Tab 1 MG PO BID PRN ANXIETY AND/OR INSOMNIA Ref 0 TAB Omeprazole (Omeprazole) 20 Mg Tab 20 MG PO BID #30 Ref 0 TAB Ondansetron Odt (Zofran Odt) 4 Mg Tab 4 MG SL Q6HR PRN Nausea/Vomiting #14 Ref 0 TAB Polyethylene Glycol 3350 Powder (Miralax Powder) 17 Gm Powd 17 GM PO TID Mix and dissolve one measuring cap-ful (17 grams) in water or juice. Constipation #1 Ref 0 BOTTLE Potassium Chloride ER (Potassium Chloride ER) 20 Meq Tab 20 MEQ PO TID Electrolyte Replacement #30 Ref 0 TAB Temazepam (Temazepam) 30 Mg Cap 30 MG PO HS PRN INSOMNIA #30 Ref 0 CAP Triamcinolone Nasal (Nasacort Allergy 24Hr Nasal) 55 Mcg/Act Spr 2 SPRAY EACH NARE DAILY Allergies #1 Ref 0 BOTTLE ([Oxygen 2L]) Discontinued Medications: Coenzyme Q10 (Ubidecarenone) (Coq-10) 100 Mg Cap 200 Hydrocodone-Acetaminophen (Lortab) 5-325 Mg Tab 1-2 TAB PO Q6H PRN PAIN #14 Ref 0 TAB Levofloxacin (Levaquin) 500 Mg Tab 500 MG PO DAILY Infection Ref 0 TAB Additional Information Perscription for Cipro, 250mg, by mouth q 12 hr, X 5 more doses. Claudia Jorgensen Mar 19, 2016 17:40
[2016-04-02] MEDS ORDERED: TRAM50TA PO (13:50)
== END 2016-03-19 18:45 | disposition home or self-care (01) | DRG 312 ==
LOC: NEPA 17:25 → NEDA 23:29 → NEDH 03-15 04:19 → N05B 03-15 15:20
PROVIDERS: ADMIT Specialist; ATTEND Specialist
DX: R55 Syncope and collapse (principal); N17.9 Acute kidney failure, unspecified; N39.0 Urinary tract infection, site not specified; S02.32XA Fracture of orbital floor, left side, initial encounter for closed fracture; S22.42XA Multiple fractures of ribs, left side, initial encounter for closed fracture; J44.9 Chronic obstructive pulmonary disease, unspecified; Z99.81 Dependence on supplemental oxygen; I25.10 Atherosclerotic heart disease of native coronary artery without angina pectoris; S01.81XA Laceration without foreign body of other part of head, initial encounter; S80.11XA Contusion of right lower leg, initial encounter; S40.012A Contusion of left shoulder, initial encounter; R11.2 Nausea with vomiting, unspecified; R30.0 Dysuria; E86.0 Dehydration; K59.00 Constipation, unspecified; Z96.653 Presence of artificial knee joint, bilateral; K21.9 Gastro-esophageal reflux disease without esophagitis; E11.9 Type 2 diabetes mellitus without complications; F41.8 Other specified anxiety disorders; Z95.0 Presence of cardiac pacemaker; Z95.1 Presence of aortocoronary bypass graft; Z85.118 Personal history of other malignant neoplasm of bronchus and lung; W18.39XA Other fall on same level, initial encounter; Y93.E9 Activity, other interior property and clothing maintenance; Y92.010 Kitchen of single-family (private) house as the place of occurrence of the external cause
CPT/HCPCS: 70450; 71010; 71101; 71275; 78452; 80048; 81001; 82533; 82550; 83520; 84484; 85025; 85027; 85379; 87086; 93005; 93017; 93306; 93880; 95819; A9502; J2405; J2785; J7030; Q9967